=== PATIENT | male | born 1945 | race Caucasian/White ===

== ENCOUNTER 2018-03-23 11:42 | Inpatient (IN) ==
[2018-03-23 12:12] LABS: Bilirubin,Urine Negative (Negative); Blood,Urine Moderate (Negative); Clarity,Urine Clear (Clear); Color,Urine Yellow (Yellow); Glucose,Urine (UA) Normal (Normal); Ketones,Urine Negative (Negative); Leukocyte Esterase,Urine Negative (Negative); Nitrite,Urine Negative (Negative); Protein,Urine Negative (Neg-Trace); Specific Gravity,Urine 1.013 (1.010-1.025); Urobilinogen,Urine Normal (Normal)
[2018-03-23 12:14] LABS: Bacteria,Urine None Seen per hpf (None-Few); Hyaline Casts,Urine None Seen per lpf (None-Few); RBC,Urine 0-3 per hpf (0-3); Squamous Epithelial Cell,Urine Few per lpf (None-Few); WBC,Urine 0-3 per hpf (0-3)
[2018-03-23] MEDS ORDERED: 0.9 % Sodium Chloride 1,000 ML IVC ONE (12:20)
--- NOTE | 2018-03-23 12:33 | Electrocardiograph Report ---
[facility] Test Date: 2018-03-23 Pat Name: Glen Shi Department: 103 Room: Gender: M Patient Biller: MARINE : 1945 Requested By: Samanta Longo Order Number: [id number] Reading MD: Kunal Valdez Measurements Intervals [place] Rate: 91 P: 31 DC: 158 QRS: -7 QRSD: 80 T: 29 QT: 355 QTc: 403 Interpretive Statements SINUS RHYTHM MINIMAL VOLTAGE CRITERIA FOR LVH, CONSIDER NORMAL VARIANT [MEETS CRITERIA IN ONE OF: R(aVL), S(V1), R(V5), R(V5/V6)+S(V1)] WARNING: DATA QUALITY MAY AFFECT INTERPRETATION Electronically Signed On 03-23-2018 12:31:36 EDT by Kunal Valdez
[2018-03-23 12:52] LABS: Basophils % 0.3 %; Eosinophils % 0.7 %; Hematocrit 37.6 % (37.5-50.1); Hemoglobin 12.9 g/dL (12.9-16.9); Immature Granulocytes % 0.2 % (0-4); Lymphocytes # 1.3 K/mcL (0.6-4.6); Lymphocytes % 21.9 %; Mean Corpuscular HGB Conc 34.3 g/dL (31.6-35.5); Mean Corpuscular Hemoglobin 29.1 pg (28.0-33.3); Mean Corpuscular Volume 84.9 fL (83.0-100.0); Monocytes # 0.5 K/mcL (0.0-1.3); Monocytes % 8.7 %; Neutrophils # 4.1 K/mcL (1.6-8.9); Platelet Count 170 K/mcL (140-400); Red Blood Count 4.43 M/mcL (4.19-5.50); Red Cell Distribution Width 12.2 % (11.5-14.5); Segmented Neutrophils % 68.2 %
--- NOTE | 2018-03-23 13:03 | Emergency Department Note ---
Disposition Clinical Impression: Chest pain Qualifiers: Chest pain type: unspecified Qualified Code(s): R07.9 - Chest pain, unspecified Disposition: Still a Patient Referrals: Paul Owens MD [Primary Care Provider] - Forms: ED Satisfaction Letter General Adult HPI - General Chief complaint: ED Chest Pain Stated complaint: irreg HR, CP Time Seen by Provider: 03/23/18 11:45 - History of Present Illness Pain Scale: 0 - Related Data Home Medications Medication Instructions Recorded Confirmed Aspirin 81 mg PO DAILY 11/14/17 11/14/17 Pravastatin Sodium [Pravachol] 20 mg PO DAILY 11/14/17 11/14/17 Tamsulosin [Flomax] 0.8 mg PO DAILY 11/14/17 11/14/17 Allergies Allergy/AdvReac Type Severity Reaction Status Date / Time No Known Allergies Allergy Verified 11/14/17 07:29 Past Medical History - Past Medical History Medical history: Reports: arthritis, GERD Surgical history: Reports: angioplasty/stent, orthopedic, other, vasectomy, other Psychiatric history: Reports: no psych history - Social History Smoking Status: Never smoker Smokeless Tobacco Status: No Alcohol use: Reports: rarely Drug use: Reports: none Physical Exam - General General appearance: alert, in no apparent distress Course Vital Signs Temperature 98.0 F 03/23/18 11:47 Pulse Rate 102 03/23/18 11:47 Respiratory Rate 15 03/23/18 11:47 Blood Pressure 134/94 03/23/18 11:47 O2 Sat by Pulse Oximetry 97 03/23/18 11:47 Temperature 98.0 F 03/23/18 11:47 Pulse Rate 102 03/23/18 11:47 Respiratory Rate 15 03/23/18 11:47 Blood Pressure 134/94 03/23/18 11:47 O2 Sat by Pulse Oximetry 97 03/23/18 11:47 Oxygen Delivery Oxygen Delivery Room Air Medical Decision Making - Lab Data Result diagrams: 03/23/18 12:37 Lab Results 03/23/18 03/23/18 Range/Units 11:55 12:37 WBC 6.0 (4.3-11.1) K/mcL RBC 4.43 (4.19-5.50) M/mcL Hgb 12.9 (12.9-16.9) g/dL Hct 37.6 (37.5-50.1) % MCV 84.9 (83.0-100.0) fL MCH 29.1 (28.0-33.3) pg MCHC 34.3 (31.6-35.5) g/dL RDW 12.2 (11.5-14.5) % Plt Count 170 (140-400) K/mcL MPV 10.0 (9.4-12.4) fL Immature Gran % 0.2 (0-4) % Seg Neutrophils % 68.2 % Lymphocytes % 21.9 % Monocytes % 8.7 % Eosinophils % 0.7 % Basophils % 0.3 % Neutrophils # 4.1 (1.6-8.9) K/mcL Lymphocytes # 1.3 (0.6-4.6) K/mcL Monocytes # 0.5 (0.0-1.3) K/mcL Eosinophils # 0.0 (0.0-0.6) K/mcL Basophils # 0.0 (0.0-0.2) K/mcL Urine Color Yellow (Yellow) Urine Clarity Clear (Clear) Urine pH 7.0 (5.0-8.0) pH Units Ur Specific [place] 1.013 (1.010-1.025) Urine Protein Negative (Neg-Trace) mg/dL Urine Glucose (UA) Normal (Normal) mg/dL Urine Ketones Negative (Negative) mg/dL Urine Blood Moderate H (Negative) Urine Nitrite Negative (Negative) Urine Bilirubin Negative (Negative) Urine Urobilinogen Normal (Normal) mg/dL Ur Leukocyte Esterase Negative (Negative) Urine Microscopic RBC 0-3 (0-3) per hpf Urine Microscopic WBC 0-3 (0-3) per hpf Ur Squamous Epith Cells Few (None-Few) per lpf Urine Bacteria None Seen (None-Few) per hpf Hyaline Casts None Seen (None-Few) per lpf Ur Culture Indicated? NO (NO) Attestation Statement - Attestation Attestation: I examined this patient and my medical decision-making was reviewed with the Resident Physician. I agree with the documented findings, disposition and treatment plan as described except to the extent set forth below. 72 year old male presents to the ED with complaints of irregluar heart rate and chest pain. PAtinet states that this has happened to him a few years ago and was evaluted by cardiology and was given some vagal maneuvers to help decrease his heart rate. Agustina states that he has been experneicng similar palpitations while gardening recently. Agustina currently is NSR with rate of 91 , without any evidene of afib. WE will do cardiopulmonary workup and like discharge home is negative workup with followup to cardiology
[2018-03-23 13:16] LABS: Troponin I < 0.03 ng/mL (< 0.04)
[2018-03-23 13:17] LABS: BUN/Creatinine Ratio 22 (6-26); Blood Urea Nitrogen 28 mg/dL (8-23); Calcium 9.5 mg/dL (8.6-10.3); Carbon Dioxide 24 mEq/L (23-29); Chloride 110 mEq/L (98-107); Glucose 105 mg/dL (70-105); Osmolality,Calculated 300 (280-300); Potassium 3.8 mEq/L (3.5-5.1); Sodium 142 mEq/L (136-145); eGFR For African Americans > 60 (> 60); eGFR For Non-African Americans 57 (> 60)
--- NOTE | 2018-03-23 14:37 | Emergency Department Note ---
Disposition Clinical Impression: Chest pain Qualifiers: Chest pain type: unspecified Qualified Code(s): R07.9 - Chest pain, unspecified Disposition: Admitted As Inpatient Condition: Fair Referrals: Paul Owens MD [Partnered Physician] - Forms: ED Satisfaction Letter Time of Disposition: 14:52 Chest Pain HPI - General Chief Complaint: ED Chest Pain Stated Complaint: irreg HR, CP Time Seen by Provider: 03/23/18 11:45 Source: patient Mode of arrival: ambulatory Limitations: no limitations Vital Signs Reviewed: Yes Nursing Notes Reviewed: Yes - History of Present Illness HPI Narrative: Patient is a 72-year-old male who presents to [facility] ED with a chief complaint of chest pain. States his symptoms started around 11 AM when he was working out in the yard. States he started getting some palpitations and then had a stressful phone call. States his chest pain that started in the substernal region. States it radiated up into his neck. States he also felt very short of breath at that time. States the symptoms have now resolved. He received aspirin in the squad on route. Denies any nausea, vomiting, fever or chills. No abdominal pain, problems with urination or bowel movements. States he has had of prior heart catheterization done approximately 3 years ago at our facility. States they noted some blockages but nothing that needed stenting at that time. States she last followed up with cardiology approximately 2 years ago. Past medical history otherwise significant for hyperlipidemia on pravastatin. Pt complaint: chest pain Onset (ago): hour(s) Duration: now resolved Onset: during exertion Pain Location: substernal Severity: moderate Severity scale (1-10): 0 Quality: aching Pain Radiation: neck Improves with: nothing Worsens with: other (stress) Associated symptoms: Reports: dyspnea. Denies: nausea, vomiting, diaphoresis, fever, cough Treatments prior to arrival chest pain: aspirin - Related Data Home Medications Medication Instructions Recorded Confirmed Aspirin 81 mg PO DAILY 11/14/17 11/14/17 Pravastatin Sodium [Pravachol] 20 mg PO DAILY 11/14/17 11/14/17 Tamsulosin [Flomax] 0.8 mg PO DAILY 11/14/17 11/14/17 Cholecalciferol (D-3) [Vitamin D] 1,000 unit PO DAILY 03/23/18 03/23/18 Folic Acid [FA-8] 0.8 mg PO DAILY 03/23/18 03/23/18 Glucosamine Sulfate Dipot Chlr 1,000 mg PO DAILY 03/23/18 03/23/18 [Glucosamine] Saw [place] 80 mg PO DAILY 03/23/18 03/23/18 Ubidecarenone [Coq10] 50 mg PO DAILY 03/23/18 03/23/18 Allergies Allergy/AdvReac Type Severity Reaction Status Date / Time No Known Allergies Allergy Verified 03/23/18 14:11 All systems ED: reviewed and negative except as stated. Chest Pain PMH - Past Medical History Medical history: Reports: arthritis, GERD Surgical history: Reports: angioplasty/stent, orthopedic, other, vasectomy, other Psychiatric history: Reports: no psych history - Social History Smoking Status: Never smoker Alcohol use: Reports: rarely Drug use: Reports: none Physical Exam - General Limitations: no limitations General appearance: alert, in no apparent distress - Head Head exam: atraumatic, normocephalic, normal inspection - Eye Eye exam: Present: normal appearance, EOMI - ENT ENT exam: normal exam, normal oropharynx, mucous membranes moist - Neck Neck exam: Present: normal inspection, full ROM, trachea midline - Chest Chest inspection: Present: normal inspection, symmetric chest wall rise - Respiratory Respiratory exam: Present: normal lung sounds bilaterally - Cardiovascular Cardiovascular exam: Present: regular rate, normal rhythm, normal heart sounds - Abdominal Exam Abdominal exam: Present: soft, Non-Tender. Absent: tenderness, distention, guarding, rebound, rigidity - Extremities Exam Extremities exam: Present: normal inspection, full ROM. Absent: tenderness, pedal edema - Back Exam Back exam: Present: normal inspection, full ROM. Absent: tenderness - Neurological Exam Neurological exam: Present: alert, oriented X3 - Psychiatric Psychiatric exam: Present: normal affect, normal mood - Skin Skin exam: Present: warm, dry, intact, normal color Course Course Narrative: Patient seen and examined. Chest pain that started around 11 AM. Now asymptomatic. Already received a full dose of aspirin. Cardiopulmonary workup initiated. Due to patient's age and history of atherosclerosis, he is at moderate risk of having ACS. Will likely recommend admission. - Reevaluation(s) Reevaluation #1: Labwork, imaging unremarkable. We will admit for chest pain, rule out ACS. I discussed with the hospitalist who has accepted patient for admission. Time: 14:52 Vital Signs Temperature 98.0 F 03/23/18 11:47 Pulse Rate 102 03/23/18 11:47 Respiratory Rate 15 03/23/18 11:47 Blood Pressure 134/94 03/23/18 11:47 O2 Sat by Pulse Oximetry 97 03/23/18 11:47 Temperature 98.0 F 03/23/18 11:47 Pulse Rate 102 03/23/18 11:47 Respiratory Rate 16 03/23/18 13:21 Blood Pressure 103/74 03/23/18 13:21 O2 Sat by Pulse Oximetry 94 03/23/18 13:21 Oxygen Delivery Oxygen Delivery Room Air Chest Pain - Medical Records Medical records reviewed: Yes I reviewed the patient's medical records. - Lab Data Lab results reviewed: Yes I reviewed the patient's lab results. Result diagrams: 03/23/18 12:37 03/23/18 12:37 Lab Results 03/23/18 03/23/18 03/23/18 Range/Units 11:55 12:37 12:37 WBC 6.0 (4.3-11.1) K/mcL RBC 4.43 (4.19-5.50) M/mcL Hgb 12.9 (12.9-16.9) g/dL Hct 37.6 (37.5-50.1) % MCV 84.9 (83.0-100.0) fL MCH 29.1 (28.0-33.3) pg MCHC 34.3 (31.6-35.5) g/dL RDW 12.2 (11.5-14.5) % Plt Count 170 (140-400) K/mcL MPV 10.0 (9.4-12.4) fL Immature Gran % 0.2 (0-4) % Seg Neutrophils % 68.2 % Lymphocytes % 21.9 % Monocytes % 8.7 % Eosinophils % 0.7 % Basophils % 0.3 % Neutrophils # 4.1 (1.6-8.9) K/mcL Lymphocytes # 1.3 (0.6-4.6) K/mcL Monocytes # 0.5 (0.0-1.3) K/mcL Eosinophils # 0.0 (0.0-0.6) K/mcL Basophils # 0.0 (0.0-0.2) K/mcL D-Dimer (0-500) ng/mLFEU Sodium 142 (136-145) mEq/L Potassium 3.8 (3.5-5.1) mEq/L Chloride 110 H (98-107) mEq/L Carbon Dioxide 24 (23-29) mEq/L BUN 28 H (8-23) mg/dL Creatinine 1.26 (0.70-1.30) mg/dL Est GFR ( Amer) > 60 (> 60) Est GFR (Non-Af Amer) 57 L (> 60) BUN/Creatinine Ratio 22 (6-26) Glucose 105 (70-105) mg/dL Calculated Osmolality 300 (280-300) Calcium 9.5 (8.6-10.3) mg/dL Troponin I < 0.03 (< 0.04) ng/mL Urine Color Yellow (Yellow) Urine Clarity Clear (Clear) Urine pH 7.0 (5.0-8.0) pH Units Ur Specific [place] 1.013 (1.010-1.025) Urine Protein Negative (Neg-Trace) mg/dL Urine Glucose (UA) Normal (Normal) mg/dL Urine Ketones Negative (Negative) mg/dL Urine Blood Moderate H (Negative) Urine Nitrite Negative (Negative) Urine Bilirubin Negative (Negative) Urine Urobilinogen Normal (Normal) mg/dL Ur Leukocyte Esterase Negative (Negative) Urine Microscopic RBC 0-3 (0-3) per hpf Urine Microscopic WBC 0-3 (0-3) per hpf Ur Squamous Epith Cells Few (None-Few) per lpf Urine Bacteria None Seen (None-Few) per hpf Hyaline Casts None Seen (None-Few) per lpf Ur Culture Indicated? NO (NO) 03/23/18 Range/Units 12:37 WBC (4.3-11.1) K/mcL RBC (4.19-5.50) M/mcL Hgb (12.9-16.9) g/dL Hct (37.5-50.1) % MCV (83.0-100.0) fL MCH (28.0-33.3) pg MCHC (31.6-35.5) g/dL RDW (11.5-14.5) % Plt Count (140-400) K/mcL MPV (9.4-12.4) fL Immature Gran % (0-4) % Seg Neutrophils % % Lymphocytes % % Monocytes % % Eosinophils % % Basophils % % Neutrophils # (1.6-8.9) K/mcL Lymphocytes # (0.6-4.6) K/mcL Monocytes # (0.0-1.3) K/mcL Eosinophils # (0.0-0.6) K/mcL Basophils # (0.0-0.2) K/mcL D-Dimer 383 (0-500) ng/mLFEU Sodium (136-145) mEq/L Potassium (3.5-5.1) mEq/L Chloride (98-107) mEq/L Carbon Dioxide (23-29) mEq/L BUN (8-23) mg/dL Creatinine (0.70-1.30) mg/dL Est GFR ( Amer) (> 60) Est GFR (Non-Af Amer) (> 60) BUN/Creatinine Ratio (6-26) Glucose (70-105) mg/dL Calculated Osmolality (280-300) Calcium (8.6-10.3) mg/dL Troponin I (< 0.04) ng/mL Urine Color (Yellow) Urine Clarity (Clear) Urine pH (5.0-8.0) pH Units Ur Specific [place] (1.010-1.025) Urine Protein (Neg-Trace) mg/dL Urine Glucose (UA) (Normal) mg/dL Urine Ketones (Negative) mg/dL Urine Blood (Negative) Urine Nitrite (Negative) Urine Bilirubin (Negative) Urine Urobilinogen (Normal) mg/dL Ur Leukocyte Esterase (Negative) Urine Microscopic RBC (0-3) per hpf Urine Microscopic WBC (0-3) per hpf Ur Squamous Epith Cells (None-Few) per lpf Urine Bacteria (None-Few) per hpf Hyaline Casts (None-Few) per lpf Ur Culture Indicated? (NO) - Radiology Data Radiology results reviewed: Yes I reviewed the patient's radiology results. Chest X-Ray 03/23/18 12:07 IMPRESSION: No acute process. D/ / Kang Kearney MD / Kang Kearney MD Interpreting Provider: Kang Kearney MD - EKG Data EKG attestation: Yes I reviewed and interpreted this EKG. EKG results narrative: EKG done at 1151 shows normal sinus rhythm with a rate of [address] elevation or depression. Normal axis. Unchanged from prior EKG done 2014. Heart Score - Score History: Moderately Suspicious EKG: Normal Age: Greater than 65 Risk Factors: Equal/Greater than 3 risk factor or history of atherosclerotic disease Troponin: Less than normal limit HEART Score Total: 5
[2018-03-23] MEDS ORDERED: Naloxone 0.4 MG/ML INJ IVP PRN (17:53)
[2018-03-23] MEDS ORDERED: Acetaminophen 325 MG TABLET PO PRN (17:53)
[2018-03-23] MEDS ORDERED: traMADol 50 MG TABLET PO PRN (17:53)
[2018-03-23] MEDS ORDERED: *HR* Heparin 5,000 UNIT/ML VIAL SQ SCH (18:00)
--- NOTE | 2018-03-23 18:16 | Internal Med History&Physical ---
Date of Encounter: 03/23/18 Time of Encounter: 18:08 Internal Medicine - H&P: HPI Admitted From: Home Plans for Post Hospital Care: Home History of present illness: Mr. Shi is a 72 year old male who presents to [facility] ED with a chief complaint of chest pain. States his symptoms started around 11 AM when he was working out in the yard. States he started getting some palpitations and then had a stressful phone call. States his chest pain that started in the substernal region. States it radiated up into his neck. States he also felt very short of breath at that time. States the symptoms have now resolved. He received aspirin in the squad on route. Denies any nausea, vomiting, fever or chills. No abdominal pain, problems with urination or bowel movements. States he has had of prior heart catheterization done approximately 3 years ago at our facility. States they noted some blockages but nothing that needed stenting at that time. States she last followed up with cardiology approximately 2 years ago. Past medical history otherwise significant for hyperlipidemia on pravastatin. Past Med Surg Social Fam HX - Past Medical History Medical history: arthritis, GERD, other Psychiatric history: no psych history - Past Surgical History Surgical History: angioplasty/stent, orthopedic, other, vasectomy, other - Social History Smoking Status: Never smoker Smokeless Tobacco Status: No Alcohol use: rarely Drug use: none - Family History Father Living Status: Age at : 74 Cause of : heart disease Hx Family Cardiac Disorders: Yes Internal Medicine - H&P: Meds Aspirin 81 mg PO DAILY 11/14/17 [History] Pravastatin Sodium [Pravachol] 20 mg PO DAILY 11/14/17 [History] Tamsulosin [Flomax] 0.8 mg PO DAILY 11/14/17 [History] Cholecalciferol (D-3) [Vitamin D] 1,000 unit PO DAILY 03/23/18 [History] Folic Acid [FA-8] 0.8 mg PO DAILY 03/23/18 [History] Glucosamine Sulfate Dipot Chlr [Glucosamine] 1,000 mg PO DAILY 03/23/18 [History ] Saw [place] 80 mg PO DAILY 03/23/18 [History] Ubidecarenone [Coq10] 50 mg PO DAILY 03/23/18 [History] 3 Allergy/AdvReac Type Severity Reaction Status Date / Time No Known Allergies Allergy Verified 03/23/18 14:11 All Systems PM: A 10-system review of systems was performed and is negative for pertinent findings except as documented above in the HPI. Review of systems: REVIEW OF SYSTEMS: CONSTITUTIONAL: No weight loss, fever, chills, weakness or fatigue. HEENT: Eyes: No visual loss, blurred vision, double vision or yellow sclerae. Ears, Nose, Throat: No hearing loss, sneezing, congestion, runny nose or sore throat. SKIN: No rash or itching. CARDIOVASCULAR: see HPI. RESPIRATORY: No shortness of breath, cough or sputum. GASTROINTESTINAL: No anorexia, nausea, vomiting or diarrhea. No abdominal pain or blood. GENITOURINARY: No dysuria, urgency, or frequency. NEUROLOGICAL: No headache, dizziness, syncope, paralysis, ataxia, numbness or tingling in the extremities. No change in bowel or bladder control. MUSCULOSKELETAL: No muscle, back pain, joint pain or stiffness. HEMATOLOGIC: No anemia, bleeding or bruising. LYMPHATICS: No enlarged nodes. No history of splenectomy. PSYCHIATRIC: No history of depression or anxiety. ENDOCRINOLOGIC: No reports of sweating, cold or heat intolerance. No polyuria or polydipsia. - Constitutional Vitals: Temp Pulse Resp BP Pulse Ox 97.7 F 81 14 126/78 97 03/23/18 14:50 03/23/18 14:50 03/23/18 14:50 03/23/18 14:50 03/23/18 14:50 General appearance: Present: A&O X 3 Exam: PHYSICAL EXAMINATION: GENERAL APPEARANCE: The patient is alert, oriented and in no acute distress. HEENT: Head is normocephalic. The sinuses are nontender. Pupils are equal and reactive. The nares are patent. Oropharynx clear without lesions. NECK: Supple without lymphadenopathy. HEART: Regular rate and rhythm. LUNGS: No crackles or wheezes are heard. ABDOMEN: Soft, nontender, nondistended with good bowel sounds heard. Inguinal area is normal. EXTREMITIES: Without cyanosis, clubbing or edema. NEUROLOGICAL: Gross nonfocal. SKIN: Warm and dry without any rash. Internal Med - H&P Results - Labs CBC & Chem 7: 03/23/18 12:37 03/23/18 12:37 - Assessment and plan (1) Chest pain Current Visit: Yes Status: Acute Assessment and plan: 9 year old male with past medical history of hyperlipidemia presented with acute onset of chest pain. He had a cardiac workup 2-3 years ago which patient reported to be normal. - Patient take aspirin and home, he received aspirin at ED, overall low risk for 's ACS. - Continue cycle troponin, telemetry monitoring, EKG as needed. - Echocardiogram and stress test in the morning. Qualifiers: Chest pain type: unspecified Qualified Code(s): R07.9 - Chest pain, unspecified (2) Hyperlipidemia Current Visit: No Status: Chronic Assessment and plan: Repeated lipid panel in the morning. Continue home medication. Qualifiers: Hyperlipidemia type: pure hypercholesterolemia Qualified Code(s): E78.00 - Pure hypercholesterolemia, unspecified; E78.0 - Pure hypercholesterolemia - Time Spent With Patient Total time spent is greater than 50% in coordination of care (as documented) at patient's floor/unit and/or counseling patient: Greater than 35 minutes
[2018-03-23] MEDS ORDERED: *HR* Heparin 5,000 UNIT/ML VIAL IVP PRN ×4 (19:18→19:52)
[2018-03-23] MEDS ORDERED: *HR* Heparin 5,000 UNIT/ML VIAL IVP ONE (19:18)
[2018-03-23] MEDS ORDERED: Heparin 25,000 UNIT/500 ML D5W 25,000 UNIT/500 ML BAG IVC SCH ×2 (19:30→20:00)
[2018-03-23 19:54] LABS: Hematocrit 34.2 % (37.5-50.1); Hemoglobin 12.2 g/dL (12.9-16.9); Mean Corpuscular HGB Conc 35.7 g/dL (31.6-35.5); Mean Corpuscular Hemoglobin 30.7 pg (28.0-33.3); Mean Corpuscular Volume 86.1 fL (83.0-100.0); Mean Platelet Volume 10.1 fL (9.4-12.4); Platelet Count 155 K/mcL (140-400); Red Blood Count 3.97 M/mcL (4.19-5.50); Red Cell Distribution Width 12.4 % (11.5-14.5)
[2018-03-23 20:06] LABS: INR 1.1; Prothrombin Time 11.8 Seconds (9.4-12.1)
[2018-03-23 20:09] LABS: Activated Partial Thrombo Time 29.2 Seconds (26.0-36.0)
[2018-03-24 03:26] LABS: Basophils % 0.7 %; Eosinophils # 0.1 K/mcL (0.0-0.6); Eosinophils % 2.1 %; Hematocrit 34.7 % (37.5-50.1); Hemoglobin 12.2 g/dL (12.9-16.9); Immature Granulocytes % 0.2 % (0-4); Lymphocytes # 2.1 K/mcL (0.6-4.6); Lymphocytes % 39.6 %; Mean Corpuscular HGB Conc 35.2 g/dL (31.6-35.5); Mean Corpuscular Hemoglobin 30.4 pg (28.0-33.3); Mean Corpuscular Volume 86.5 fL (83.0-100.0); Mean Platelet Volume 10.4 fL (9.4-12.4); Monocytes # 0.5 K/mcL (0.0-1.3); Neutrophils # 2.6 K/mcL (1.6-8.9); Platelet Count 164 K/mcL (140-400); Red Blood Count 4.01 M/mcL (4.19-5.50); Red Cell Distribution Width 12.4 % (11.5-14.5); Segmented Neutrophils % 48.4 %
[2018-03-24 03:43] LABS: BUN/Creatinine Ratio 21 (6-26); Blood Urea Nitrogen 22 mg/dL (8-23); Calcium 8.9 mg/dL (8.6-10.3); Carbon Dioxide 22 mEq/L (23-29); Chloride 112 mEq/L (98-107); Chol/HDL Ratio 3.1 (0-4.9); Cholesterol 116 mg/dL (< 200); Glucose 111 mg/dL (70-105); HDL Cholesterol 38 mg/dL (40-59); LDL Cholesterol,Calculated 65 mg/dL (0-99); Osmolality,Calculated 298 (280-300); Potassium 4.1 mEq/L (3.5-5.1); Sodium 142 mEq/L (136-145); Triglycerides 65 mg/dL (< 150); eGFR For African Americans > 60 (> 60); eGFR For Non-African Americans > 60 (> 60)
[2018-03-24 03:46] LABS: Activated Partial Thrombo Time 171.2 Seconds (26.0-36.0)
[2018-03-24 03:55] LABS: Heparin anti-factor XA UFH 0.84 IU/mL (0.30-0.70)
--- NOTE | 2018-03-24 08:02 | Internal Med Progress Note ---
Date of Encounter: 03/24/18 Time of Encounter: 07:59 - Assessment and plan (1) Chest pain Current Visit: Yes Status: Acute Assessment and plan: 72 year old male with past medical history of hyperlipidemia presented with acute onset of chest pain. He had a cardiac workup 2-3 years ago which patient reported to be normal. - Patient take aspirin and home, he received aspirin at ED, overall low risk for ACS. - 2nd set of troponin slightly elevated, patient was started on heparin drip, however the third set of troponin was at flat level, heparin drip was DC'd. Continue telemetry monitoring, EKG as needed. - Echocardiogram and stress test today. - Plan to discharge the patient on Tuesday if both the stress test and echocardiogram were normal. Qualifiers: Chest pain type: unspecified Qualified Code(s): R07.9 - Chest pain, unspecified (2) Hyperlipidemia Current Visit: No Status: Chronic Assessment and plan: Repeat lipid panel this morning showed LDL within treatment target. Continue home medication. Qualifiers: Hyperlipidemia type: pure hypercholesterolemia Qualified Code(s): E78.00 - Pure hypercholesterolemia, unspecified; E78.0 - Pure hypercholesterolemia - Time Spent With Patient Total time spent is greater than 50% in coordination of care (as documented) at patient's floor/unit and/or counseling patient: Greater than 35 minutes - Subjective Interval history: Patient went for echo, I will see the patient later. - Constitutional Vitals: Temp Pulse Resp BP Pulse Ox 97.7 F 66 14 128/82 96 03/24/18 03:19 03/24/18 03:19 03/24/18 03:19 03/24/18 03:19 03/24/18 03:19 General appearance: Present: A&O X 3 Exam: PHYSICAL EXAMINATION: GENERAL APPEARANCE: The patient is alert, oriented and in no acute distress. HEENT: Head is normocephalic. The sinuses are nontender. Pupils are equal and reactive. The nares are patent. Oropharynx clear without lesions. NECK: Supple without lymphadenopathy. HEART: Regular rate and rhythm. LUNGS: No crackles or wheezes are heard. ABDOMEN: Soft, nontender, nondistended with good bowel sounds heard. Inguinal area is normal. EXTREMITIES: Without cyanosis, clubbing or edema. NEUROLOGICAL: Gross nonfocal. SKIN: Warm and dry without any rash. Internal Medicine: Result - Labs CBC & Chem 7: 03/24/18 03:01 03/24/18 03:01 Labs: Short CBC 03/23/18 03/24/18 Range/Units 19:38 03:01 WBC 4.9 5.4 (4.3-11.1) K/mcL Hgb 12.2 L 12.2 L (12.9-16.9) g/dL Hct 34.2 L 34.7 L (37.5-50.1) % Plt Count 155 164 (140-400) K/mcL Neutrophils # 2.6 (1.6-8.9) K/mcL BMP 03/24/18 03:01 Sodium 142 Potassium 4.1 Chloride 112 H Carbon Dioxide 22 L BUN 22 Creatinine 1.07 Glucose 111 H Calcium 8.9 Cardiac Enzymes 03/23/18 03/24/18 Range/Units 18:00 00:52 Troponin I 0.07 H* 0.06 H* (< 0.04) ng/mL - ABG Interpretation ABG results: PT/INR, D-dimer PT 11.8 Seconds (9.4-12.1) 03/23/18 19:38 D-Dimer 383 ng/mLFEU (0-500) 03/23/18 12:37 Consult Discharge Plan - Plan Referrals: Paul Owens MD [Primary Care Provider] -
[2018-03-24] MEDS: Aspirin 81 MG TAB.CHEW PO SCH (09:25)
[2018-03-24] MEDS: Cholecalciferol (D-3) 1,000 UNIT TABLET PO SCH (09:25)
[2018-03-24] MEDS: (Ubidecarenone [Coq10] 50 MG) PO SCH (11:07)
[2018-03-24] MEDS: (Folic Acid [Fa-8] 0.8 MG) PO SCH (11:07)
[2018-03-24] MEDS: (Glucosamine Sulfate Dipot Chlr [Glucosamine] 1,000 M PO SCH (11:07)
[2018-03-24] MEDS ORDERED: Heparin 1,000 UNITS/500 mL 500 ML ONE ×2 (12:05→13:47)
[2018-03-24] MEDS ORDERED: ISOVUE-370 200 ML INFUS..BTL IV ONE ×2 (12:05→13:47)
[2018-03-24] MEDS ORDERED: 0.9 % Sodium Chloride 1,000 ML ONE ×3 (12:05→13:47)
[2018-03-24] MEDS ORDERED: Nitroglycerin 1,000 MCG/10 ML VIAL IV ONE ×2 (12:05→13:48)
[2018-03-24] MEDS ORDERED: *HR* Heparin 10,000 UNIT/10 ML VIAL ONE ×2 (12:05→13:47)
[2018-03-24] MEDS ORDERED: *HR* Midazolam HCl 2 MG/2 ML VIAL ONE ×2 (12:39→13:04)
--- NOTE | 2018-03-24 12:53 | Cardiology Consult Note ---
Date of Encounter: 03/24/18 Time of Encounter: 12:49 Assessment and Plan (1) NSTEMI (non-ST elevated myocardial infarction) Current Visit: Yes Status: Acute Moderate disease of the left anterior descending artery in 2013 with recent onset of exertional dyspnea and chest pain along with a troponin of 0.06. Risks benefits and alternatives of a left heart cath were discussed with the patient and he agrees to proceed Discussion w patient/family: The assessment and plan as outlined above was discussed with the patient and/or family members who expressed understanding and agreement. All questions were answered. Thank you for involving us in the care of your patient. Please call with any questions. History of Present Illness Consult date: 03/24/18 Consult reason: NSTEMI Chief complaint: Chest pain History of present illness: Mr. Shi is a 72 year old male with known nonobstructive coronary artery disease last left heart catheter [address] Santos presents with increasing shortness of breath over the last month associated with recent onset of retrosternal chest pain associated with shortness of breath. EKG shows nonspecific ST changes. I personally reviewed his left heart catheter from 2013 which reveals nonobstructive disease involving the mid LAD. In the setting of slight elevation of his troponins with a peak of 0.06 and exertional dyspnea possibly an angina equivalent I do feel a left heart catheter is reasonable. Past Med Surg Social Fam HX - Past Medical History Medical history: arthritis, GERD, other Psychiatric history: no psych history - Past Surgical History Surgical History: angioplasty/stent, orthopedic, other, vasectomy, other - Social History Smoking Status: Never smoker Smokeless Tobacco Status: No Alcohol use: rarely Drug use: none - Family History Father Living Status: Age at : 74 Cause of : heart disease Hx Family Cardiac Disorders: Yes Medications and Allergies Aspirin 81 mg PO DAILY 11/14/17 [History] Pravastatin Sodium [Pravachol] 20 mg PO DAILY 11/14/17 [History] Tamsulosin [Flomax] 0.8 mg PO DAILY 11/14/17 [History] Cholecalciferol (D-3) [Vitamin D] 1,000 unit PO DAILY 03/23/18 [History] Folic Acid [FA-8] 0.8 mg PO DAILY 03/23/18 [History] Glucosamine Sulfate Dipot Chlr [Glucosamine] 1,000 mg PO DAILY 03/23/18 [History ] Saw [place] 80 mg PO DAILY 03/23/18 [History] Ubidecarenone [Coq10] 50 mg PO DAILY 03/23/18 [History] 3 Allergy/AdvReac Type Severity Reaction Status Date / Time No Known Allergies Allergy Verified 03/23/18 14:11 All Systems Review: The remainder of the systems were reviewed and are negative Physical Examination Vital Signs, Last 4 Hours Temp Pulse Resp BP Pulse Ox 03/24/18 11:18 98.0 F 85 18 131/82 97 General: Conversant, No Apparent Distress HEENT: Atraumatic, Normocephaly, Mucus Membranes Moist Neck: No JVD, Normal carotid pulses Cardiac: Reg Rate and Rhythm, Normal S1 and S2, No Murmur Lungs: Normal Breath Sounds, No Wheeze, Rales, Rhonchi Neuro: Alert and responsive, No focal deficits noted Abdomen: Soft, Non-Tender Skin: No rashes noted on visualized skin Musculoskeletal: No Chest Wall Tenderness Extremities: No Clubbing, No Cyanosis, No Edema, Normal Pulses Results 03/24/18 03:01 03/24/18 03:01 Lab Results 03/23/18 03/23/18 03/23/18 18:00 19:38 19:38 WBC 4.9 Hgb 12.2 L Hct 34.2 L Plt Count 155 INR 1.1 APTT 29.2 Sodium Potassium Chloride Carbon Dioxide BUN Creatinine Glucose Calcium Troponin I 0.07 H* 03/24/18 03/24/18 03/24/18 00:52 03:01 03:01 WBC 5.4 Hgb 12.2 L Hct 34.7 L Plt Count 164 INR APTT Sodium 142 Potassium 4.1 Chloride 112 H Carbon Dioxide 22 L BUN 22 Creatinine 1.07 Glucose 111 H Calcium 8.9 Troponin I 0.06 H* 03/24/18 03/24/18 03:01 09:57 WBC Hgb Hct Plt Count INR APTT 171.2 H* D 38.8 H D Sodium Potassium Chloride Carbon Dioxide BUN Creatinine Glucose Calcium Troponin I Consult Discharge Plan - Plan Referrals: Paul Owens MD [Primary Care Provider] -
[2018-03-24] MEDS ORDERED: *HR* Ticagrelor 90 MG TABLET ONE (13:33)
[2018-03-24] MEDS ORDERED: Nitroglycerin Spray 4.9 GM BOTTLE ONE (13:39)
[2018-03-24] MEDS ORDERED: *HR* Morphine 2 MG/ML SYRINGE ONE (14:02)
--- NOTE | 2018-03-24 14:13 | Pre-Sedation Evaluation ---
Pre-sedation evaluation - Pre-sedation checklist Date of procedure: 03/24/18 Procedure: heart cath Recent Vitals: Last Vital Signs Temp 98.0 F 03/24/18 11:18 Pulse 85 03/24/18 11:18 Resp 18 03/24/18 11:18 BP 131/82 03/24/18 11:18 Pulse Ox 97 03/24/18 11:18 H&P (including ROS) documented in medical record: Yes Previous reaction to sedatives/anesthetics: No Dietary Status: NPO after Midnight Airway Assessment: Patient can open mouth completely, TMJ function normal Dentition: No loose teeth or bridges Possible difficult airway: No ASA Classification *see protocol: CLASS II-Mild systemic disease, CLASS III- Severe systemic disease Plan of Care: Pt appropriate candidate for procedure/moderate/conscious sedation , Risks/benefits of procedure/sedation discussed w/ patient/family, If not NPO; Risk of intake outweiged by necessity to perform procedure
[2018-03-24] MEDS ORDERED: 0.9 % Sodium Chloride 1,000 ML IVC SCH (14:15)
--- NOTE | 2018-03-24 14:35 | Invasive Diagnostic Lab Proc ---
Name: Glen Shi Date of Study: 03/24/2018 Date: 1945 Ht: 65.0in Medical Record#: [id number] Age: 72 Wt: 171.96lb Gender: Male BSA: 1.85 Order #: [id number] BMI: 28.65 Physicians Procedure Physician: RAFAEL APARICIO DO Referring MD: Referring MD: Staff Name Position Time In Mary Carmen Hernandez RT Scrub 01:58 PM Taya Fine RN Medical Representative 01:58 PM Juan Manuel Diggs RN Monitor 01:58 PM Indications Indication Non-Stemi Procedures Performed Procedure CORONARY ARTERY ANGIO S&I Pre-Procedure Checklist Informed consent is complete signed and on chart. H&P is on chart. ID band is on and ID verified with patient. Patient NPO for procedure The procedure was described for the patient and questions were answered. ECG is on chart. Plan of Care Patient will tolerate the procedure without complications. Adequate level of comfort will be maintained. Hemodynamics will remain stable Patient will recover from procedure without complications. Respiratory function will be maintained. Cardiac rhythm will remain stable. Patient temperature will be maintained. Patient and/or family have verbalized understanding of the procedure. Patient Education Intravenous Access Time IV Size Location DC'd Fluid/Drip Rate Units RN 01:55 PM 18g 1 11/10" Patent On Arrival Lt Antecubital Allergies No Known Allergies Vital Signs Time BP (mmHg) HR (bpm) O2 Sat. RR (bpm) LOC 01:54 PM 143 / 98 98 95 % 14 4 = Oriented but drowsy 01:59 PM 151 / 99 104 97 % 14 4 = Oriented but drowsy 02:04 PM 126 / 90 106 96 % 14 4 = Oriented but drowsy Procedural Medications Time Medication Dose Units Method Given By 01:58 PM Nitroglycerin 100 mcg Intracoronary Rafael Aparicio DO 02:01 PM Morphine 2 mg Intravenous Taya Fine RN ASA Classification: CLASS II- Mild systemic disease (i.e. well-controlled diabetes, hypertension, asthma, cigarette smoking) Jeremy Score Preprocedure Postprocedure Activity 2- Moves 4 extremities sustained head lift Activity 2- Moves 4 extremities sustained head lift Circulation 2- SBP +/= 20 points of pre-anesthetic level Circulation 2- SBP +/= 20 points of pre-anesthetic level Consciousness 2- Awake and alert oriented x 3 Consciousness 2- Awake and alert oriented x 3 O2 Saturation 2- Able to maintain O2 satruation of 92% on room air O2 Saturation 2- Able to maintain O2 satruation of 92% on room air Respiratory 2- Able to deep breathe and cough well Respiratory 2- Able to deep breathe and cough well Total Score 10 Total Score 10 Contrast Agent: Isovue Total Contrast: 20 ml Procedure Log Time Note Enter By 01:55 PM Pt arrived to laborer electroplating 2 at 13:55 cedwards 01:56 PM Physician arrived 13:56, Patient with ongoing chest pain cedwards 01:56 PM Fortunato and tony completed cedwards 01:56 PM Sign in performed according to hospital policy. cedwards 01:56 PM Procedure start 13:56 cedwards 01:56 PM Time: 13:56 Patient comfortable and pain free: No cedwards 01:56 PM Time: 13:56LOC: 4 = Oriented but drowsy cedwards 01:56 PM Time out performed according to hospital policy cedwards 01:56 PM Sheath exchanged for a 6 Fr 11 cm Cordis Siom[place] sheath [id number] cedwards 01:57 PM 6Fr FL 4 catheter inserted over the wire DNC cedwards 01:57 PM LCA angiography performed in multiple views. cedwards 01:58 PM Mary Carmen Hernandez RT Position: Scrub Time in: 13:58 cedwards 01:58 PM Taya Fine RN Position: Medical Representative Time in: 13:58 cedwards 01:58 PM Juan Manuel Diggs RN Position: Monitor Time in: 13:58 cedwards 01:59 PM Time: 13:58 Nitroglycerin 100 mcg Intracoronary Given by Rafael Aparicio DO cedwards 02:01 PM Time: 14:01 Morphine 2 mg Intravenous Given by Taya Fine RN cedwards 02:10 PM Chest Pain rated at a 4 out of 10 cedwards Hemodynamics Post Procedure Information Closure Device Time Device Success/Fail 03/24/2018 2:13:00 PM Manual Compression Pulses Updated by Juan Manuel Diggs RN on 03/24/2018 2:25:19 PM electronically signed on 03/24/2018 2:26:36 PM with status of Final
--- NOTE | 2018-03-24 14:45 | Invasive Diagnostic Lab Proc ---
Name: Glen Shi Date of Study: 03/24/2018 Date: 1945 Ht: 65.0in Medical Record#: [id number] Age: 72 Wt: 171.96lb Gender: Male BSA: 1.85 Order #: [id number] BMI: 28.65 Physicians Procedure Physician: Rafael Aparicio DO Referring MD: Referring MD: Staff Name Position Time In Taya Fine RN Hand Cigar Maker 12:36 PM Mary Carmen Hernandez RT Scrub 12:36 PM Juan Manuel Diggs RN Monitor 12:36 PM Indications Indication Non-Stemi Procedures Performed Procedure L HRT ARTERY/VENTRICLE ANGIO PRQ CARD SUGAR STENT W/ANGIO 1 VSL IV Doppler BLD Flow 1st Vessel Pre-Procedure Checklist Informed consent is complete signed and on chart. H&P is on chart. ID band is on and ID verified with patient. Patient NPO for procedure The procedure was described for the patient and questions were answered. ECG is on chart. Plan of Care Patient will tolerate the procedure without complications. Adequate level of comfort will be maintained. Hemodynamics will remain stable Patient will recover from procedure without complications. Respiratory function will be maintained. Cardiac rhythm will remain stable. Patient temperature will be maintained. Patient and/or family have verbalized understanding of the procedure. Patient Education Chief Complaint/Reason for Test: Cardiac Cath Developmental Category: Geriatric (65+ years) Developmentally Appropriate for Age: Yes Learning Barriers: None Education Needs: Procedure Education Method: Verbal Information Taught: Cardiac Cath Educational Evaluation: Able to repeat information Intravenous Access Time IV Size Location DC'd Fluid/Drip Rate Units RN 18g 1 /" Patent On Arrival Lt Antecubital 0.9NaCl 25 ml/hr Allergies No Known Allergies Vital Signs Time BP (mmHg) HR (bpm) O2 Sat. RR (bpm) LOC / % 5 = Fully awake and oriented or at pre-proc level 12:23 PM / % 5 = Fully awake and oriented or at pre-proc level 12:35 PM / % 5 = Fully awake and oriented or at pre-proc level 12:35 PM / % 4 = Oriented but drowsy 12:51 PM / % 4 = Oriented but drowsy 01:06 PM / % 4 = Oriented but drowsy 01:21 PM / % 5 = Fully awake and oriented or at pre-proc level 12:35 PM 143 / 90 82 % 12:40 PM 151 / 98 72 98 % 12:45 PM 125 / 77 81 97 % 12:50 PM 129 / 91 60 99 % 12:55 PM 126 / 74 51 99 % 01:00 PM 114 / 79 59 100 % 01:05 PM 125 / 93 73 99 % 01:11 PM 133 / 82 79 97 % 01:15 PM 129 / 81 66 96 % 01:20 PM 129 / 78 90 96 % 01:25 PM 118 / 88 77 98 % 01:30 PM 119 / 80 95 94 % 01:36 PM 141 / 89 % 01:38 PM 144 / 87 83 95 % 01:43 PM 141 / 93 87 94 % 01:48 PM 144 / 100 103 96 % Procedural Medications Time Medication Dose Units Method Given By 12:40 PM Oxygen 2 L/min nasal cannula Taya Fine RN 12:41 PM Versed 2 mg Intravenous Taya Fine RN 01:03 PM Lidocaine 2% 10 ml Subcutaneous Rafael Aparicio DO 01:05 PM Versed 1 mg Intravenous Taya Fine RN 01:15 PM Heparin 3000 units Intravenous Taya Fine RN 01:19 PM Adenosine 655 ml/hr Intravenous Taya STEPHENS 01:27 PM Nitroglycerin 100 mcg Intracoronary Rafael Aparicio DO 01:32 PM Brilinta 180 mg Orally Taya Fine RN 01:41 PM Nitroglycerin 0.4 mcg Sublingual Taya Fine RN ASA Classification: CLASS II- Mild systemic disease (i.e. well-controlled diabetes, hypertension, asthma, cigarette smoking) Jeremy Score Preprocedure Postprocedure Activity 2- Moves 4 extremities sustained head lift Activity 2- Moves 4 extremities sustained head lift Circulation 2- SBP +/= 20 points of pre-anesthetic level Circulation 2- SBP +/= 20 points of pre-anesthetic level Consciousness 2- Awake and alert oriented x 3 Consciousness 2- Awake and alert oriented x 3 O2 Saturation 2- Able to maintain O2 satruation of 92% on room air O2 Saturation 2- Able to maintain O2 satruation of 92% on room air Respiratory 2- Able to deep breathe and cough well Respiratory 2- Able to deep breathe and cough well Total Score 10 Total Score 10 Contrast Agent: Isovue Diagnostic Contrast: 110 ml Total Contrast: 110 ml Fluoro Dose: 489 mGy Activated Clotting Time Time Seconds to Clot 01:37 PM 196 Procedure Log Time Note Enter By 12:22 PM CathStat 12:23 PM Pt arrived to laboratory aide 2 at 12:23 scoates 12:23 PM Patient charges- Angio tray pack, Navilyst 3mm J, Pulse Oximetry and ACIST tubing and transducer scoates 12:23 PM Time: 12:23 Patient comfortable and pain free: Yes scoates 12:23 PM Time: 12:23LOC: 5 = Fully awake and oriented or at pre-proc level scoates 12:23 PM Case Delayed No scoates 12:35 PM Hair removed from procedure site in procedure lab using clippers. Bilateral groin prepped with Chloraprep by Mary Carmen Hernandez, then patient was draped. Skin intact. cedwards 12:35 PM Vitals capture started with the following parameters, Patient=Adult, Interval=5 min, Initial Pel[place]mal=568 mmHg, Deflation Rate=5 mmHg, Cuff placed on Right Arm 12:35 PM Physician arrived 12:35 cedwards 12:35 PM Meet and tony completed cedwards 12:35 PM Sign in performed according to hospital policy. cedwards 12:35 PM Procedure start 12:35 cedwards 12:35 PM Time: 12:35 Patient comfortable and pain free: Yes cedwards 12:35 PM Time: 12:35LOC: 5 = Fully awake and oriented or at pre-proc level cedwards 12:35 PM HR=82 bpm, BEJW=059/90 mmhg, Comment=NSR 12:36 PM Taya Fine RN Position: Hand Cigar Maker Time in: 12:36 cedwards 12:36 PM Mary Carmen Hernandez RT Position: Scrub Time in: 12:36 cedwards 12:36 PM Juan Manuel Diggs RN Position: Monitor Time in: 12:36 cedwards 12:40 PM HR=72 bpm, MNZY=938/98 mmhg, SpO2=98.0 % 12:40 PM Time: 12:40 Oxygen on at 2 L/min per nasal cannula by Taya Fine RN cedwards 12:41 PM Time: 12:41 Versed 2 mg Intravenous Given by Taya Fine RN cedwards 12:45 PM HR=81 bpm, DJUT=560/77 mmhg, SpO2=97.0 % 12:46 PM Pressure channel 2 zeroed. 12:47 PM Recorded ECG: HR=75 Condition=Condition 1 12:48 PM Pressure channel 2 zeroed. 12:49 PM Clinical Presentation: Non-STEMI cedwards 12:50 PM HR=60 bpm, HVRU=902/91 mmhg, SpO2=99.0 %, Comment=NSR 12:51 PM Time: 12:35LOC: 4 = Oriented but drowsy cedwards 12:51 PM Time: 12:35 Patient comfortable and pain free: Yes cedwards 12:55 PM HR=51 bpm, FTOB=505/74 mmhg, SpO2=99.0 % 01:00 PM HR=59 bpm, BVRD=585/79 mmhg, FaZ8=171.0 % 01:02 PM Time out performed according to hospital policy cedwards 01:03 PM Time: 13:03 10 ml Lidocaine 2% to right groin Subcutaneous Given by Rafael Aparicio DO cedwards 01:04 PM Micro-Introducer Kit utilized for sheath placement cedwards 01:04 PM Access obtained by percutaneous puncture. 6Fr 10cm Terumo [place] sheath placed in right Femoral artery. [id number] cedwards 01:05 PM Time: 13:05 Versed 1 mg Intravenous Given by Taya Fine RN cedwards 01:05 PM HR=73 bpm, XTOO=611/93 mmhg, SpO2=99.0 %, Comment=NSR 01:06 PM 6Fr FR 4 catheter inserted over the wire [facility] ced 01:06 PM Time: 12:51 Patient comfortable and pain free: Yes cedwards 01:06 PM Time: 12:51LOC: 4 = Oriented but drowsy cedwards 01:06 PM Catheter selectively placed in left ventricle cedwards 01:06 PM Recorded Pressure: LV, HR=77, Condition=Condition 1 (Left Ventricle) LV 120/-14/8 01:07 PM Recorded Pressure: LV, Ao, HR=69, Condition=Condition 1 (Left Ventricle) LV 123/-5/6, (Aorta) Ao 120/71/92 01:07 PM Bolus angiogram of left Ventricle complete cedwards :07 PM RCA angiography performed in multiple views. cedwards 01:07 PM Catheter removed ced:08 PM 6Fr FL 4 catheter inserted over the wire [facility] cedwards :09 PM LCA angiography performed in multiple views. cedwards :09 PM Recorded Pressure: Ao, HR=70, Condition=Condition 1 (Aorta) Ao 118/80/98 01:10 PM Catheter removed cedwards 01:11 PM HR=79 bpm, CYNY=461/82 mmhg, SpO2=97.0 % 01:12 PM 6Fr XB LAD 3.5 Cordis guide catheter was used to cannulate the PCI vessel successfully. reused? No cedwards 01:12 PM .014 ChoICE PT Extra Support 300cm guide wire across target lesion- successful. reused? No cedwards 01:14 PM Pressure channel 2 zeroed. 01:14 PM ACT 158 cedwards 01:15 PM Time: 13:15 Heparin 3000 units Intravenous Given by Taya Fine RN cedwards 01:15 PM HR=66 bpm, XIEX=407/81 mmhg, SpO2=96.0 % 01:18 PM Asist FFR Catheter advanced to target lesion. cedwards 01:19 PM Time: 13:19 Adenosine 655 ml/hr administered Intravenous by Taya STEPHENS cedwards 01:20 PM HR=90 bpm, QUQR=582/78 mmhg, SpO2=96.0 % 01:21 PM Adenosine stopped cedwards : PM Time: 13:06 Patient comfortable and pain free: Yes cedwards :21 PM FFR Measurement: 0.78 cedwards :21 PM Time: 13:06LOC: 4 = Oriented but drowsy cedwards :21 PM Flow Wire/Catheter removed intact cedwards :22 PM Lesion found in Mid LAD. Pre Stenosis: 50 Pre EBONY Flow: 3: Complete and Brisk Flow/Perfusion cedwards 01:24 PM 2.5mm x 24mm Synergy drug-eluting stent across target lesion- successful Lot #[id number] cedwards 01:25 PM Inflation device was opened. cedwards 01:25 PM HR=77 bpm, MJZG=246/88 mmhg, SpO2=98.0 % 01:26 PM Stent deployed @ 14 zehra for 15 seconds cedwards :27 PM Stent delivery system removed intact. cedwards 01:28 PM Time: 13:27 Nitroglycerin 100 mcg Intracoronary Given by Rafael Aparicio DO cedwards 01:29 PM Guide wire removed intact. cedwards 01:30 PM Guide catheter removed intact. cedwards 01:30 PM HR=95 bpm, EAQY=317/80 mmhg, SpO2=94.0 % 01:32 PM Procedure completed at 13:32 cedwards 01:33 PM Time: 13:32 Brilinta 180 mg Orally Given by Taya Fine RN cedwards 01:33 PM ASA Class CLASS II- Mild systemic disease (i.e. well-controlled diabetes, hypertension, asthma, cigarette smoking) cedwards 01:34 PM Coronary Dominance: right cedwards 01:34 PM Sign out completed: Radiation Dose 488.69 mGy Fluoro Time: 4.3 Isovue 370 - 200ml contrast 110 ml given by Rafael Aparicio DO. Complications: NoneCardiac Rehab Consult needed: NoConfirmed administered medications: Yes cedwards :34 PM Isovue 370 - 200ml,1 Bottle(s) used. cedwards 01:35 PM Estimated Blood Loss: minimal cedwards 01:35 PM Post ECG NSR cedwards 01:35 PM Post Blood Pressure 119/80 cedwards 01:35 PM Information taught Cardiac Cath and PCI cedwards 01:35 PM Education needs Procedure, Plan of Care, and Responsibilities of Patient in Care cedwards 01:35 PM Learning barriers :None cedwards 01:35 PM Education Methods Verbal cedwards 01:35 PM Education evaluation Able to repeat information cedwards 01:35 PM Site status No bleeding/hematoma - Rt Groin as reported by Mary Carmen Hernandez RT at 13:35 cedwards 01:36 PM Plavix, Effient or Brilinta given Yes cedwards 01:36 PM Family not available cedwards 01:36 PM RBTA=331/89 mmhg 01:36 PM Fluoro Time: 4.3 cedwards 01:36 PM Isovue 370 - 200ml contrast [address] Aparicio. cedwards 01:36 PM Radiation Dose 488.69 mGy cedwards 01:36 PM Patient having chest pain 7 out of 10 cedwards 01:37 PM At 13:37 the ACT was 196 seconds. cedwards 01:37 PM Recorded ECG: HR=86 Condition=Condition 1 01:38 PM Vitals capture stopped. 01:38 PM Vitals capture started with the following parameters, Patient=Adult, Interval=5 min, Initial Ssdfllpa=511 mmHg, Deflation Rate=5 mmHg, Cuff placed on Right Arm 01:38 PM HR=83 bpm, AMWK=478/87 mmhg, SpO2=95.0 % 01:40 PM Time: 13:21LOC: 5 = Fully awake and oriented or at pre-proc level cedwards :41 PM Time: 13:41 Nitroglycerin 0.4 mcg Sublingual Given by Taya Fine RN cedwards 01:42 PM NIBP STAT measurement started. 01:43 PM HR=87 bpm, NWDH=002/93 mmhg, SpO2=94.0 %, Comment=NSR 01:47 PM Patient having chest pain Dr. Aparicio at bedside 12 lead EKG performed cedwards 01:48 PM GT=245 bpm, CWKV=634/100 mmhg, SpO2=96.0 %, Comment=NSR 01:[address] Aparicio deciding to go back in and take more pictures due to patients ongoing chest pain cedwards 02:34 PM Report called to Doroteo on [address] c[place] Complications Complication None Hemodynamics Pressures Site Systolic/A Wave Diastolic/V Wave Mean LV 120 -14 8 LV 123 -5 6 AO 120 71 92 AO 118 80 98 Post Procedure Information Blood Pressure: 119/80 mmHg Rhythm: NSR Post procedural instructions were given Closure Device Time Device Success/Fail 03/24/2018 1:38:00 PM Manual Compression Site Checks Time Location Status Staff Sheath In? Note 01:35 PM Rt Groin No bleeding/hematoma Mary Carmen Hernandez RT Pulses Updated by Juan Manuel Diggs RN on 03/24/2018 2:34:55 PM electronically signed on 03/24/2018 2:36:02 PM with status of Final
[2018-03-24] MEDS ORDERED: *HR* Atropine Sulfate 1 MG/10 ML SYRINGE ONE (15:07)
[2018-03-24] MEDS ORDERED: *HR* Morphine 2 MG/ML SYRINGE IVP STA (15:52)
[2018-03-24] MEDS: *HR* Ticagrelor 90 MG TABLET PO SCH (20:50)
--- NOTE | 2018-03-24 23:33 | Electrocardiograph Report ---
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
[2018-03-25 02:36] LABS: Basophils % 0.1 %; Eosinophils % 0.3 %; Hematocrit 35.5 % (37.5-50.1); Hemoglobin 12.1 g/dL (12.9-16.9); Immature Granulocytes % 0.7 % (0-4); Lymphocytes # 1.5 K/mcL (0.6-4.6); Lymphocytes % 19.1 %; Mean Corpuscular HGB Conc 34.1 g/dL (31.6-35.5); Mean Corpuscular Volume 85.1 fL (83.0-100.0); Mean Platelet Volume 10.4 fL (9.4-12.4); Monocytes # 0.5 K/mcL (0.0-1.3); Monocytes % 6.7 %; Neutrophils # 5.6 K/mcL (1.6-8.9); Platelet Count 177 K/mcL (140-400); Red Blood Count 4.17 M/mcL (4.19-5.50); Red Cell Distribution Width 12.4 % (11.5-14.5); Segmented Neutrophils % 73.1 %
--- NOTE | 2018-03-25 02:38 | Event Note ---
Date of Encounter: 03/25/18 Time of Encounter: 02:32 Paged by nurse that patient is having 4/10 chest pain. Nurse ordered EKG, I will go take a look at results. He had C today. I advised nurse to let cardiology news production supervisor know. I ordered STAT troponin. I will go examine patient.
[2018-03-25 02:56] LABS: BUN/Creatinine Ratio 16 (6-26); Blood Urea Nitrogen 18 mg/dL (8-23); Calcium 9.5 mg/dL (8.6-10.3); Carbon Dioxide 21 mEq/L (23-29); Chloride 109 mEq/L (98-107); Glucose 146 mg/dL (70-105); Osmolality,Calculated 289 (280-300); Potassium 3.7 mEq/L (3.5-5.1); Sodium 137 mEq/L (136-145); eGFR For African Americans > 60 (> 60); eGFR For Non-African Americans > 60 (> 60)
[2018-03-25 03:07] LABS: Troponin I 0.25 ng/mL (< 0.04)
[2018-03-25] MEDS: Cholecalciferol (D-3) 1,000 UNIT TABLET PO SCH (07:20)
[2018-03-25] MEDS: *HR* Ticagrelor 90 MG TABLET PO SCH (07:20)
[2018-03-25] MEDS: Aspirin 81 MG TAB.CHEW PO SCH (07:20)
[2018-03-25] MEDS: (Folic Acid [Fa-8] 0.8 MG) PO SCH (07:20)
[2018-03-25] MEDS: (Glucosamine Sulfate Dipot Chlr [Glucosamine] 1,000 M PO SCH (07:20)
[2018-03-25] MEDS: (Ubidecarenone [Coq10] 50 MG) PO SCH (07:20)
--- NOTE | 2018-03-25 10:09 | Cardiology Progress Note ---
Date of Encounter: 03/25/18 Time of Encounter: 09:20 Assessment and Plan (1) NSTEMI (non-ST elevated myocardial infarction) Current Visit: Yes Status: Acute Presented with typical chest pain symptoms and elevated troponin. TTE 03/24/18: LVEF 60%, normal wall motion, dilated aortic root 3.98 cm at level of sinuses--recommend dedicated CT scan in the outpatient setting. LHC 03/24/18: s/p successful PTCA/SUGAR to mLAD; otherwise no significant obstructive CAD. Patient reported severe chest pain following LHC, was taken back to lab which demonstrated patent LAD stent with no other findings. Has been chest pain free overnight. Recommend uninterrupted DAPT (asa + brilinta) for a minimum of 1 year--patient verbalized understanding. 30 day card provided. Add betablocker, continue statin, asa. Recommend PRN NTG tabs upon discharge. Cardiac rehab. Post PCI discharge instructions discussed. Cardiology will sign-off, will coordinate outpatient follow-up. Discussion w patient/family: The assessment and plan as outlined above was discussed with the patient and/or family members who expressed understanding and agreement. All questions were answered. Thank you for involving us in the care of your patient. Please call with any questions. The patient will be discussed and reviewed with Dr. Mary East; Cardiology will sign-off. Will coordinate outpatient follow-up. Subjective Principal diagnosis: NSTEMI Interval history: Seen and examined. No chest pain reported overnight. No reported pain or bleeding/issues with cath site. Objective Vital Signs, Last 4 Hours Temp Pulse Resp BP Pulse Ox 03/25/18 09:39 58 03/25/18 09:35 66 16 96 03/25/18 09:34 97 03/25/18 07:49 79.9 F L 78 16 153/105 97 General: Conversant HEENT: Atraumatic, Normocephaly Cardiac: Reg Rate and Rhythm, Normal S1 and S2 Lungs: Normal Breath Sounds Neuro: Alert and responsive Abdomen: Soft Skin: No rashes noted on visualized skin Musculoskeletal: No Chest Wall Tenderness Extremities: No Edema, Normal Pulses Other: right groin cath site: no hematoma, bleeding, or ecchymosis noted. +2 DP/PT pulses bilaterally. Results 03/25/18 02:09 03/25/18 02:09 Lab Results 03/25/18 03/25/18 02:09 02:09 WBC 7.6 Hgb 12.1 L Hct 35.5 L Plt Count 177 Sodium 137 Potassium 3.7 Chloride 109 H Carbon Dioxide 21 L BUN 18 Creatinine 1.10 Glucose 146 H Calcium 9.5 Troponin I 0.25 H* Active Medications Acetaminophen (Tylenol) 650 mg PO Q6HR PRN PRN Reason: Mild Pain/Fever Stop: 09/22/18 17:54 Aspirin (Aspirin) 81 mg PO DAILY CARYN Stop: 09/23/18 09:01 Last Admin: 03/25/18 07:20 Dose: 81 mg Metoprolol Tartrate (Lopressor) 25 mg PO BID CARYN Stop: 09/24/18 09:31 Last Admin: 03/25/18 09:44 Dose: 25 mg Naloxone HCl (Narcan) 0.4 mg IVP Q2MIN PRN PRN Reason: SEE COMMENTS Stop: 09/22/18 17:54 Pharmacy Profile Note (Patient Taking Own Medication) 0 each PO DAILY CARYN Stop: 09/23/18 09:01 Last Admin: 03/25/18 07:20 Dose: Not Given Pharmacy Profile Note (Patient Taking Own Medication) 0 each PO DAILY CARYN Stop: 09/23/18 09:01 Last Admin: 03/25/18 07:20 Dose: Not Given Pharmacy Profile Note (Patient Taking Own Medication) 0 each PO DAILY CARYN Stop: 09/23/18 09:01 Last Admin: 03/25/18 07:20 Dose: Not Given Simvastatin (Zocor) 10 mg PO HS [facility] Stop: 09/23/18 21:01 Last Admin: 03/24/18 20:49 Dose: 10 mg Tamsulosin HCl (Flomax) 0.8 mg PO DAILY CARYN PRN Reason: Protocol Stop: 09/23/18 09:01 Last Admin: 03/25/18 07:20 Dose: 0.8 mg Ticagrelor (Brilinta) 90 mg PO BID CARYN Stop: 09/23/18 21:01 Last Admin: 03/25/18 07:20 Dose: 90 mg Tramadol HCl (Ultram) 50 mg PO Q6HR PRN PRN Reason: Moderate Pain Stop: 09/22/18 17:54 Last Admin: 03/25/18 01:15 Dose: 50 mg Vitamin D (Vitamin D) 1,000 unit PO DAILY CARYN Stop: 09/23/18 09:01 Last Admin: 03/25/18 07:20 Dose: 1,000 unit - Imaging and Cardiology Cardiac cath: report reviewed Other Results: 12 hour tele: avg HR=69 SR. No significant event noted. - EKG Interpretation EKG results cardiology: personally reviewed Consult Discharge Plan - Plan Referrals: Paul Owens MD [Primary Care Provider] - 03/31/18 3:00 pm Rita Fermin AUGER MACHINE OFFBEARER [Advanced Practice Nurse] - (office will call patient at home with follow up appointment)
--- NOTE | 2018-03-25 10:20 | Discharge Summary ---
- NOTES TO OUTPATIENT PROVIDER Notes to Outpatient Provider: s/p coronary stenting, on ASA and Brilinta now Date of Encounter: 03/25/18 Time of Encounter: 10:18 - Discharge Diagnosis (1) NSTEMI (non-ST elevated myocardial infarction) Priority: Primary Status: Acute (2) Chest pain Priority: Primary Status: Acute Qualifiers: Chest pain type: unspecified Qualified Code(s): R07.9 - Chest pain, unspecified (3) Hyperlipidemia Priority: Secondary Status: Chronic Qualifiers: Hyperlipidemia type: unspecified Qualified Code(s): E78.5 - Hyperlipidemia , unspecified Hospital course: Mr. Shi is a 72 year old male with the above medical problems, admitted with chest pain. Serial troponins showed gradual elevation up to 0.25 along with active chest pain. He was started on telemetry monitoring along with aspirin, statin and beta chet. Echocardiogram was done which showed preserved ejection fraction, mild LV diastolic dysfunction. Cardiology was consulted and patient underwent left heart catheterization and received drug-eluting stent to mid LAD. He had another episode of chest pain overnight, however vital signs remained stable and is doing well today. Cardiology has cleared the patient for discharge, he is otherwise medically stable. He was explained the importance of uninterrupted therapy with aspirin and Brilinta. Discharge discussed with: patient - Time Spent with Patient Total time spent providing and/or coordinating discharge services: Greater than 30 minutes (45 min) - Discharge Medications Prescriptions: Nitroglycerin 0.4 mg SL Q5MIN PRN #30 tab.subl PRN Reason: Chest Pain Metoprolol [Lopressor] 25 mg PO BID #60 tablet Ticagrelor [Brilinta] 90 mg PO BID #60 tablet Home Medications: Aspirin 81 mg PO DAILY 11/14/17 [History] Pravastatin Sodium [Pravachol] 20 mg PO DAILY 11/14/17 [History] Tamsulosin [Flomax] 0.8 mg PO DAILY 11/14/17 [History] Cholecalciferol (D-3) [Vitamin D] 1,000 unit PO DAILY 03/23/18 [History] Folic Acid [FA-8] 0.8 mg PO DAILY 03/23/18 [History] Glucosamine Sulfate Dipot Chlr [Glucosamine] 1,000 mg PO DAILY 03/23/18 [History ] Saw [place] 80 mg PO DAILY 03/23/18 [History] Ubidecarenone [Coq10] 50 mg PO DAILY 03/23/18 [History] Metoprolol [Lopressor] 25 mg PO BID #60 tablet 03/25/18 [Rx] Nitroglycerin 0.4 mg SL Q5MIN PRN #30 tab.subl 03/25/18 [Rx] Ticagrelor [Brilinta] 90 mg PO BID #60 tablet 03/25/18 [Rx] Allergies/Adverse Reactions: 3 Allergy/AdvReac Type Severity Reaction Status Date / Time No Known Allergies Allergy Verified 03/23/18 14:11 Date of admission: 03/24/18 15:05 Primary care physician: Paul Owens MD Discharging clinician: Carolina Whitt Anticipated date of discharge: 03/25/18 - Constitutional Vitals: Temp Pulse Resp BP Pulse Ox 79.9 F L 58 16 153/105 96 03/25/18 07:49 03/25/18 09:39 03/25/18 09:35 03/25/18 07:49 03/25/18 09:35 General appearance: Present: A&O X 3, answers questions appropriately - Cardiovascular Cardiovascular exam: Present: RRR, +S1, +S2. Absent: diastolic murmur, gallop, rubs, systolic murmur - Patient Status Disposition: Home, Self-Care Condition: Good Functional capacity at discharge: independent ambulation Overall status at discharge: patient is progressing back to baseline - Discharge Instructions Instructions: Myocardial Infarction (DC), Chest Pain (DC), Left Heart Catheterization (DC) Follow Up With: Paul Owens MD [Primary Care Provider] - 03/31/18 3:00 pm Rita Fermin CNP [Advanced Practice Nurse] - (office will call patient at home with follow up appointment) - Diet and Activity Activity: resume usual activities as tolerated (post-cath restrictions per Cardiology) Diet: low fat, low cholesterol, low salt diet
[2018-03-25 11:07] VITALS: BP 121/83
[2018-03-25] MEDS ORDERED: Adenosine 90 MG/30 ML MLS IV ONE (11:47)
--- NOTE | 2018-03-27 14:15 | Electrocardiograph Report ---
[address] [address] Test Date: 2018-03-25 Pat Name: Glen Shi Department: 110 Room: 01 Gender: M Electoral Officer: : 1945 Requested By: Rafael Aparicio Order Number: [id number] Reading MD: Radha Lan Measurements Intervals [place] Rate: 79 P: 53 NM: 175 QRS: 7 QRSD: 76 T: 20 QT: 389 QTc: 424 Interpretive Statements SINUS RHYTHM Electronically Signed On 03-27-2018 14:14:18 EDT by Radha Lan
--- NOTE | 2018-03-28 09:37 | Invasive Diagnostic Lab Proc ---
Name: Glen Shi Date of Study: 03/24/2018 Date: 1945 Ht: 65.0in Medical Record#: [id number] Age: 72 Wt: 171.96lb Gender: Male BSA: 1.85 Order #: [id number] BMI: 28.65 Physicians Procedure Physician: RAFAEL APARICIO DO Referring MD: Referring MD: Staff Name Position Time In Mary Carmen Hernandez RT Scrub 01:58 PM Taya Fine RN Database Management System Specialist 01:58 PM Juan Manuel Diggs RN Monitor 01:58 PM Indications Indication Non-Stemi Procedures Performed Procedure CORONARY ARTERY ANGIO S&I Pre-Procedure Checklist Informed consent is complete signed and on chart. H&P is on chart. ID band is on and ID verified with patient. Patient NPO for procedure The procedure was described for the patient and questions were answered. ECG is on chart. Plan of Care Patient will tolerate the procedure without complications. Adequate level of comfort will be maintained. Hemodynamics will remain stable Patient will recover from procedure without complications. Respiratory function will be maintained. Cardiac rhythm will remain stable. Patient temperature will be maintained. Patient and/or family have verbalized understanding of the procedure. Patient Education Intravenous Access Time IV Size Location DC'd Fluid/Drip Rate Units RN 01:55 PM 18g 1 11/10" Patent On Arrival Lt Antecubital Allergies No Known Allergies Vital Signs Time BP (mmHg) HR (bpm) O2 Sat. RR (bpm) LOC 01:54 PM 143 / 98 98 95 % 14 4 = Oriented but drowsy 01:59 PM 151 / 99 104 97 % 14 4 = Oriented but drowsy 02:04 PM 126 / 90 106 96 % 14 4 = Oriented but drowsy Procedural Medications Time Medication Dose Units Method Given By 01:58 PM Nitroglycerin 100 mcg Intracoronary Rafael Aparicio DO 02:01 PM Morphine 2 mg Intravenous Taya Fine RN ASA Classification: CLASS II- Mild systemic disease (i.e. well-controlled diabetes, hypertension, asthma, cigarette smoking) Jeremy Score Preprocedure Postprocedure Activity 2- Moves 4 extremities sustained head lift Activity 2- Moves 4 extremities sustained head lift Circulation 2- SBP +/= 20 points of pre-anesthetic level Circulation 2- SBP +/= 20 points of pre-anesthetic level Consciousness 2- Awake and alert oriented x 3 Consciousness 2- Awake and alert oriented x 3 O2 Saturation 2- Able to maintain O2 satruation of 92% on room air O2 Saturation 2- Able to maintain O2 satruation of 92% on room air Respiratory 2- Able to deep breathe and cough well Respiratory 2- Able to deep breathe and cough well Total Score 10 Total Score 10 Contrast Agent: Isovue Diagnostic Contrast: 100 ml Total Contrast: 100 ml Fluoro Dose: 608 mGy Procedure Log Time Note Enter By 01:55 PM Pt arrived to sleep lab technologist 2 at 13:55 cedwards 01:56 PM Physician arrived 13:56, Patient with ongoing chest pain cedwards 01:56 PM Meet and greet completed cedwards 01:56 PM Sign in performed according to hospital policy. cedwards 01:56 PM Procedure start 13:56 cedwards 01:56 PM Time: 13:56 Patient comfortable and pain free: No cedwards 01:56 PM Time: 13:56LOC: 4 = Oriented but drowsy cedwards 01:56 PM Time out performed according to hospital policy cedwards 01:56 PM Sheath exchanged for a 6 Fr 11 cm Cordis Siomara sheath [id number] cedwards 01:57 PM 6Fr FL 4 catheter inserted over the wire DNC cedwards 01:57 PM LCA angiography performed in multiple views. cedwards 01:58 PM Mary Carmen Hernandez RT Position: Scrub Time in: 13:58 cedwards 01:58 PM Taya Fine RN Position: Database Management System Specialist Time in: 13:58 cedwards 01:58 PM Juan Manuel Diggs RN Position: Monitor Time in: 13:58 cedwards 01:59 PM Time: 13:58 Nitroglycerin 100 mcg Intracoronary Given by Rafael Aparicio DO cedwards 02:01 PM Time: 14:01 Morphine 2 mg Intravenous Given by Taya Fine RN cedwards 02:10 PM Chest Pain rated at a 4 out of 10 cedwards 02:11 PM Did you address EBONY flow and Dominance? Yes cedwards 02:11 PM Procedure completed at 14:11 cedwards 02:12 PM Sign out completed: Radiation Dose 608.25 mGy Fluoro Time: 4.3 Isovue 370 - 200ml contrast 100 ml given by RAFAEL APARICIO DO. Complications: NoneCardiac Rehab Consult needed: YesConfirmed administered medications: Yes cedwards 02:15 PM Sheath left in place to be pulled on floor/holding areaV+Pad cedwards 02:16 PM Estimated Blood Loss: minimal cedwards 02:16 PM Information taught Cardiac Cath and PCI cedwards 02:16 PM Education needs Procedure, Plan of Care, and Responsibilities of Patient in Care cedwards 02:17 PM Education evaluation Able to repeat information cedwards 02:17 PM Learning barriers :None cedwards 02:17 PM Education Methods Verbal cedwards 02:18 PM Plavix, Effient or Brilinta given Yes cedwards 02:34 PM Report given to Doroteo STEPHENS Pt taken to 2N. 14:34 cedwards 02:35 PM Patient out of room: 14:35 cedwards 02:36 PM Complications: None cedwards 06:07 PM Coronary Dominance: right cedwards Complications Complication None None Hemodynamics Post Procedure Information Post procedural instructions were given Closure Device Time Device Success/Fail 03/24/2018 2:13:00 PM Manual Compression Pulses Updated by Juan Manuel Diggs RN on 03/27/2018 6:08:14 PM electronically signed on 03/28/2018 7:47:47 AM with status of Final
== END 2018-03-25 11:48 | disposition home or self-care (01) | DRG 247 ==
LOC: EMEROO 11:42 → 3BNU 11:42 → 2NNU 03-24 14:02 → SUATTDRO 03-24 15:05
PROVIDERS: ADMIT Student in an Organized Health Care Education/Training Program; ATTEND Internal Medicine

== ENCOUNTER 2018-04-25 11:23 | Observation (INO) ==
[2018-04-25] MEDS ORDERED: Aspirin 81 MG TAB.CHEW PO ONE (11:30)
[2018-04-25] MEDS ORDERED: 0.9 % Sodium Chloride 500 ML IVC ONE (11:30)
--- NOTE | 2018-04-25 11:33 | Emergency Department Note ---
Disposition Clinical Impression: Chest pain Qualifiers: Chest pain type: unspecified Qualified Code(s): R07.9 - Chest pain, unspecified Disposition: Admitted As Inpatient Condition: Good Referrals: Paul Owens MD [Primary Care Provider] - Time of Disposition: 14:34 Chest Pain HPI - General Stated Complaint: chest pain Time Seen by Provider: 04/25/18 11:30 Source: patient, family Mode of arrival: ambulatory Limitations: no limitations Vital Signs Reviewed: Yes Nursing Notes Reviewed: Yes - History of Present Illness HPI Narrative: 72-year-old had a stent placed a week ago took a Viagra this morning. He went to the gym to work out and developed chest pain took a nitroglycerin and his blood pressure dropped. His chest pain is better although he still has some pressure. 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 Duration: constant Onset: during exertion Pain Location: substernal, left chest Severity scale (1-10): 1 Quality: tightness, aching Pain Radiation: none Improves with: nothing Worsens with: nothing Context: recent illness (Stent placed a week ago.) Associated symptoms: Reports: dyspnea - Related Data Home Medications Medication Instructions Recorded Confirmed Aspirin 81 mg PO DAILY 11/14/17 04/25/18 Pravastatin Sodium [Pravachol] 20 mg PO DAILY 11/14/17 04/25/18 Tamsulosin [Flomax] 0.8 mg PO DAILY 11/14/17 04/25/18 Cholecalciferol (D-3) [Vitamin D] 1,000 unit PO DAILY 03/23/18 04/25/18 Folic Acid [FA-8] 0.8 mg PO DAILY 03/23/18 04/25/18 Glucosamine Sulfate Dipot Chlr 1,000 mg PO DAILY 03/23/18 04/25/18 [Glucosamine] Saw [place] 80 mg PO DAILY 03/23/18 04/25/18 Ubidecarenone [Coq10] 50 mg PO DAILY 03/23/18 04/25/18 Clopidogrel [Plavix] 75 mg PO DAILY 04/25/18 04/25/18 Previous Rx's Medication Instructions Recorded Metoprolol [Lopressor] 25 mg PO BID #60 tablet 03/25/18 Nitroglycerin 0.4 mg SL Q5MIN PRN #30 tab.subl 03/25/18 Allergies Allergy/AdvReac Type Severity Reaction Status Date / Time No Known Allergies Allergy Verified 04/25/18 14:15 Constitutional: Denies: fever, chills, weakness, weight change Eyes: Denies: eye pain, eye discharge, vision change ENT ED: Denies: ear pain, throat pain, dental pain, hearing loss, epistaxis, congestion, dysphagia Cardiovascular: Reports: chest pain. Denies: palpitations, dyspnea on exertion , edema, syncope Respiratory: Denies: cough, dyspnea, wheezes, hemoptysis, stridor Gastrointestinal: Denies: abdominal pain, nausea, vomiting, diarrhea, constipation, hematemesis, melena, hematochezia Genitourinary: Denies: urgency, dysuria, frequency, hematuria Musculoskeletal: Denies: back pain, neck pain, arthralgia, myalgia Integumentary: Denies: rash, abrasion, lesions Neurological: Denies: headache, weakness, numbness, paresthesias, confusion, abnormal gait, vertigo Psychiatric: Denies: anxiety, depression, suicidal thoughts, homicidal thoughts , auditory hallucinations, visual hallucinations Endocrine: Denies: fatigue Hematological/Lymphatic: Denies: easy bleeding, easy bruising Allergic/Immunologic: Denies: facial swelling, urticaria Chest Pain PMH - Past Medical History Medical history: Reports: arthritis, GERD, other Surgical history: Reports: angioplasty/stent, orthopedic, other, vasectomy, other Psychiatric history: Reports: no psych history - Social History Smoking Status: Never smoker Alcohol use: Reports: rarely Drug use: Reports: none Physical Exam - General Limitations: no limitations General appearance: alert, in no apparent distress - Head Head exam: atraumatic, normocephalic, normal inspection - Eye Eye exam: Present: normal appearance, PERRL, EOMI - ENT ENT exam: normal exam, normal oropharynx, mucous membranes moist - Neck Neck exam: Present: normal inspection, full ROM, trachea midline - Chest Chest inspection: Present: normal inspection, symmetric chest wall rise - Respiratory Respiratory exam: Present: normal lung sounds bilaterally - Cardiovascular Cardiovascular exam: Present: regular rate, normal rhythm, normal heart sounds - Abdominal Exam Abdominal exam: Present: soft, Non-Tender. Absent: tenderness, distention, guarding, rebound, rigidity - Extremities Exam Extremities exam: Present: normal inspection, full ROM. Absent: tenderness, pedal edema - Expanded Lower Extremity Exam Neurovascular/Tendon exam: Absent: motor deficit, sensory deficit, tendon deficit Gait: observed and normal - Back Exam Back exam: Present: normal inspection, full ROM. Absent: tenderness - Neurological Exam Neurological exam: Present: alert, oriented X3 - Psychiatric Psychiatric exam: Present: normal affect, normal mood - Skin Skin exam: Present: warm, dry, intact, normal color Course - Reevaluation(s) Reevaluation #1: 72-year-old with a history of recent stent who took a Viagra then took nitroglycerin today. He was having chest pain at the gym. Workup here is negative. Consult cardiology we will admit for observation. Time: 14:33 - Consultations Consultation #1: Discussed with Dr. Lan, admit. Time: 13:36 Consultation #2: Discussed with Dr. Malik, admit Time: 14:33 Vital Signs Temperature 98.1 F 04/25/18 11:27 Pulse Rate 99 04/25/18 11:27 Respiratory Rate 18 04/25/18 11:27 Blood Pressure 109/80 04/25/18 11:27 O2 Sat by Pulse Oximetry 94 04/25/18 11:27 Temperature 98.1 F 04/25/18 11:27 Pulse Rate 99 04/25/18 14:07 Respiratory Rate 17 04/25/18 14:07 Blood Pressure 120/80 04/25/18 14:07 O2 Sat by Pulse Oximetry 96 04/25/18 14:07 Oxygen Delivery Oxygen Delivery Room Air Chest Pain - Lab Data Lab results reviewed: Yes I reviewed the patient's lab results. Result diagrams: 04/25/18 11:43 04/25/18 11:43 Lab Results 04/25/18 04/25/18 04/25/18 Range/Units 11:43 11:43 11:43 WBC 4.8 (4.3-11.1) K/mcL RBC 3.90 L (4.19-5.50) M/mcL Hgb 11.5 L (12.9-16.9) g/dL Hct 33.6 L (37.5-50.1) % MCV 86.2 (83.0-100.0) fL MCH 29.5 (28.0-33.3) pg MCHC 34.2 (31.6-35.5) g/dL RDW 12.1 (11.5-14.5) % Plt Count 148 (140-400) K/mcL MPV 9.9 (9.4-12.4) fL Immature Gran % 0.4 (0-4) % Seg Neutrophils % 72.8 % Lymphocytes % 17.5 % Monocytes % 8.3 % Eosinophils % 0.6 % Basophils % 0.4 % Neutrophils # 3.5 (1.6-8.9) K/mcL Lymphocytes # 0.8 (0.6-4.6) K/mcL Monocytes # 0.4 (0.0-1.3) K/mcL Eosinophils # 0.0 (0.0-0.6) K/mcL Basophils # 0.0 (0.0-0.2) K/mcL PT 11.6 (9.4-12.1) Seconds INR 1.1 APTT 30.5 (26.0-36.0) Seconds Sodium 139 (136-145) mEq/L Potassium 3.5 (3.5-5.1) mEq/L Chloride 112 H (98-107) mEq/L Carbon Dioxide 21 L (23-29) mEq/L BUN 20 (8-23) mg/dL Creatinine 1.12 (0.70-1.30) mg/dL Est GFR ( Amer) > 60 (> 60) Est GFR (Non-Af Amer) > 60 (> 60) BUN/Creatinine Ratio 18 (6-26) Glucose 105 (70-105) mg/dL Calculated Osmolality 291 (280-300) Calcium 8.9 (8.6-10.3) mg/dL Troponin I < 0.03 (< 0.04) ng/mL - Radiology Data Radiology results reviewed: Yes I reviewed the patient's radiology results. Chest X-Ray 04/25/18 11:30 IMPRESSION: No acute cardiopulmonary findings. D/ / Madison Morton MD / Madison Morton MD Interpreting Provider: Madison Morton MD - EKG Data EKG attestation: Yes I reviewed and interpreted this EKG. EKG shows normal: sinus rhythm Rate: tachycardia Rhythm: NSR [place]/QRS: normal Interpretation: no acute changes Heart Score - Score History: Moderately Suspicious EKG: Non Specific repolarisation Disturbance Age: Greater than 65 Risk Factors: Equal/Greater than 3 risk factor or history of atherosclerotic disease Troponin: Less than normal limit HEART Score Total: 6
[2018-04-25 11:55] LABS: Basophils % 0.4 %; Eosinophils % 0.6 %; Hematocrit 33.6 % (37.5-50.1); Hemoglobin 11.5 g/dL (12.9-16.9); Immature Granulocytes % 0.4 % (0-4); Lymphocytes # 0.8 K/mcL (0.6-4.6); Lymphocytes % 17.5 %; Mean Corpuscular HGB Conc 34.2 g/dL (31.6-35.5); Mean Corpuscular Hemoglobin 29.5 pg (28.0-33.3); Mean Corpuscular Volume 86.2 fL (83.0-100.0); Mean Platelet Volume 9.9 fL (9.4-12.4); Monocytes # 0.4 K/mcL (0.0-1.3); Monocytes % 8.3 %; Neutrophils # 3.5 K/mcL (1.6-8.9); Platelet Count 148 K/mcL (140-400); Red Cell Distribution Width 12.1 % (11.5-14.5); Segmented Neutrophils % 72.8 %
[2018-04-25 12:03] LABS: INR 1.1; Prothrombin Time 11.6 Seconds (9.4-12.1)
[2018-04-25 12:05] LABS: Activated Partial Thrombo Time 30.5 Seconds (26.0-36.0)
[2018-04-25 12:16] LABS: Troponin I < 0.03 ng/mL (< 0.04)
[2018-04-25 13:05] LABS: BUN/Creatinine Ratio 18 (6-26); Blood Urea Nitrogen 20 mg/dL (8-23); Calcium 8.9 mg/dL (8.6-10.3); Carbon Dioxide 21 mEq/L (23-29); Chloride 112 mEq/L (98-107); Glucose 105 mg/dL (70-105); Osmolality,Calculated 291 (280-300); Potassium 3.5 mEq/L (3.5-5.1); Sodium 139 mEq/L (136-145); eGFR For African Americans > 60 (> 60); eGFR For Non-African Americans > 60 (> 60)
--- NOTE | 2018-04-25 19:38 | Internal Med History&Physical ---
Date of Encounter: 04/25/18 Time of Encounter: 18:00 Internal Medicine - H&P: HPI Chief complaint: Chest pain Admitted From: Home History of present illness: Patient is a 72-year-old male with past medical history significant for coronary arterial disease with recent stent 1 month ago, hypertension and hyperlipidemia who presented to the ER on 04/25/18 after experiencing chest pain and shortness of breath. Patient reported that he woke up this morning in his normal state of health and after taking Viagra and having sex, he decided to go work out on exercise bike. While working on exercise by patient reported of feeling more short of breath and normal. Patient reported that his shortness of breath did not improve after he ceased exercising and also experienced chest discomfort so called EMS to bring him into the hospital for evaluation. Patient also took a nitroglycerin at home before coming into the hospital. In the ER, patients cardiac enzymes were negative as was chest x-ray. Patient will be admitted to medical surgical floor for observation. Past Med Surg Social Fam HX - Past Medical History Medical history: arthritis, GERD, other Additional medical history: enlarged prostate, Psychiatric history: no psych history - Past Surgical History Surgical History: angioplasty/stent, orthopedic, other, vasectomy, other Additional surgical history: rt shoulder replacement. colonoscopy. stent - Social History Smoking Status: Never smoker Smokeless Tobacco Status: No Alcohol use: rarely Drug use: none - Family History Father Living Status: Hx Family Cardiac Disorders: Yes Internal Medicine - H&P: Meds Aspirin 81 mg PO DAILY 11/14/17 [History] Pravastatin Sodium [Pravachol] 20 mg PO DAILY 11/14/17 [History] Tamsulosin [Flomax] 0.8 mg PO DAILY 11/14/17 [History] Cholecalciferol (D-3) [Vitamin D] 1,000 unit PO DAILY 03/23/18 [History] Folic Acid [FA-8] 0.8 mg PO DAILY 03/23/18 [History] Glucosamine Sulfate Dipot Chlr [Glucosamine] 1,000 mg PO DAILY 03/23/18 [History ] Saw [place] 80 mg PO DAILY 03/23/18 [History] Ubidecarenone [Coq10] 50 mg PO DAILY 03/23/18 [History] Metoprolol [Lopressor] 25 mg PO BID #60 tablet 03/25/18 [Rx] Nitroglycerin 0.4 mg SL Q5MIN PRN #30 tab.subl 03/25/18 [Rx] Clopidogrel [Plavix] 75 mg PO DAILY 04/25/18 [History] 3 Allergy/AdvReac Type Severity Reaction Status Date / Time ticagrelor [From Brilinta] AdvReac Difficulty Verified 04/25/18 17:55 Breathing All Systems PM: A 10-system review of systems was performed and is negative for pertinent findings except as documented above in the HPI. - Constitutional Vitals: Temp Pulse Resp BP Pulse Ox 97.8 F 91 15 123/85 96 04/25/18 17:49 04/25/18 17:49 04/25/18 17:49 04/25/18 17:49 04/25/18 17:53 General appearance: Present: A&O X 3, no acute distress - Eye Eye exam: Present: normal appearance - ENT ENT exam: Present: mucous membranes moist - Respiratory Respiratory exam: Present: CTAB. Absent: accessory muscle use, rales, rhonchi, wheezes - Cardiovascular Cardiovascular exam: Present: RRR, +S1, +S2. Absent: diastolic murmur, gallop, rubs, systolic murmur - GI/Abdominal GI/Abdominal exam: Present: normal bowel sounds, soft, no peritoneal signs. Absent: distended, tenderness - Neurological Exam Neurological exam: Present: oriented X3 - Psychiatric Psychiatric exam: Present: normal mood - Skin Skin exam: Present: normal color Internal Med - H&P Results - Labs CBC & Chem 7: 04/25/18 11:43 04/25/18 11:43 - Assessment and plan (1) Chest pain Current Visit: Yes Status: Acute Assessment and plan: Patient experienced chest pain after sexual intercourse and exercising Initial troponins negative Will monitor on telemetry and trend serial troponins Cardiology consulted and appreciate recommendations Qualifiers: Chest pain type: unspecified Qualified Code(s): R07.9 - Chest pain, unspecified (2) CAD (coronary artery disease) Current Visit: Yes Status: Acute Assessment and plan: Patient reports of having a stent placed one month ago Continue aspirin/Plavix in addition to beta chet and statin Qualifiers: Qualified Code(s): I25.10 - Atherosclerotic heart disease of [place] coronary artery without angina pectoris (3) Hyperlipidemia Current Visit: No Status: Chronic Assessment and plan: Continue statin Qualifiers: Hyperlipidemia type: unspecified Qualified Code(s): E78.5 - Hyperlipidemia , unspecified (4) DVT prophylaxis Current Visit: Yes Status: Acute Assessment and plan: Subcutaneous heparin - Time Spent With Patient Total time spent is greater than 50% in coordination of care (as documented) at patient's floor/unit and/or counseling patient:
[2018-04-25] MEDS ORDERED: Nitroglycerin 0.4 MG TAB.SUBL SL PRN (19:41)
[2018-04-25] MEDS ORDERED: Naloxone 0.4 MG/ML INJ IVP PRN (19:43)
[2018-04-26] MEDS: *HR* Heparin 5,000 UNIT/ML VIAL SQ SCH ×4 (01:30→20:45)
[2018-04-26 01:49] LABS: Basophils % 0.4 %; Eosinophils # 0.1 K/mcL (0.0-0.6); Eosinophils % 1.7 %; Hematocrit 33.7 % (37.5-50.1); Hemoglobin 11.3 g/dL (12.9-16.9); Immature Granulocytes % 0.4 % (0-4); Lymphocytes # 1.4 K/mcL (0.6-4.6); Lymphocytes % 26.4 %; Mean Corpuscular HGB Conc 33.5 g/dL (31.6-35.5); Mean Corpuscular Hemoglobin 29.1 pg (28.0-33.3); Mean Corpuscular Volume 86.9 fL (83.0-100.0); Mean Platelet Volume 10.3 fL (9.4-12.4); Monocytes # 0.4 K/mcL (0.0-1.3); Monocytes % 7.3 %; Neutrophils # 3.4 K/mcL (1.6-8.9); Platelet Count 162 K/mcL (140-400); Red Blood Count 3.88 M/mcL (4.19-5.50); Red Cell Distribution Width 12.5 % (11.5-14.5); Segmented Neutrophils % 63.8 %
[2018-04-26 02:11] LABS: BUN/Creatinine Ratio 17 (6-26); Blood Urea Nitrogen 20 mg/dL (8-23); Calcium 9.5 mg/dL (8.6-10.3); Carbon Dioxide 22 mEq/L (23-29); Chloride 111 mEq/L (98-107); Glucose 182 mg/dL (70-105); Osmolality,Calculated 297 (280-300); Potassium 3.8 mEq/L (3.5-5.1); Sodium 140 mEq/L (136-145); eGFR For African Americans > 60 (> 60); eGFR For Non-African Americans > 60 (> 60)
[2018-04-26] MEDS ORDERED: Cholecalciferol (D-3) 1,000 UNIT TABLET PO SCH (09:00)
[2018-04-26] MEDS ORDERED: NON-FORMULARY MEDICATION 1 EACH EACH (Pravastatin Sodium [Pravachol] 20 MG) PO SCH (09:00)
[2018-04-26] MEDS ORDERED: Aspirin 81 MG TAB.CHEW PO SCH (09:00)
[2018-04-26] MEDS: Folic Acid 1 MG TABLET PO SCH (09:29)
[2018-04-26] MEDS: Cholecalciferol (D-3) 1,000 UNIT TABLET PO SCH (09:29)
[2018-04-26] MEDS: Aspirin 81 MG TAB.CHEW PO SCH (09:29)
[2018-04-26] MEDS: (Glucosamine Sulfate Dipot Chlr [Glucosamine] 1,000 MG) PO SCH (09:30)
[2018-04-26] MEDS: (Ubidecarenone [Coq10] 50 MG) PO SCH (09:30)
[2018-04-26] MEDS ORDERED: GI Cocktail 40 ML EACH PO ONE (09:53)
--- NOTE | 2018-04-26 10:24 | Cardiology Consult Note ---
<Kip Jackson - Last Filed: 04/26/18 13:29> Date of Encounter: 04/26/18 Time of Encounter: 10:15 Assessment and Plan (1) Chest pain Current Visit: Yes Status: Acute - Atypical chest pain (exertional, dull, but still present and not relieved by NTG) - Troponin negative x3. - EKG shows no new ischemic findings when compared to previous. - Recent cardiac workup including echo and LHC on 03/24/18: EF 60%, mild diastolic dysfunction. 1 stent placed in mid LAD at that time. - Chest pain is somewhat reproducible on exam, states it is tender but not the same pain Plan - Suspect some aspect of stable angina but also suspect some GI or MSK component - Will increase BB to metoprolol 37.5 mg BID - Consider ranexa if pain not improved. Not a canidate for imdur due to viagra use, will discuss with patient. - Reports pain is gone after GI cocktail. Agreeable to monitor for the afternoon and if no further pain reported, will sign off without further testing. Start PPI. Will discuss further plan with Dr. Lan. Qualifiers: Chest pain type: unspecified Qualified Code(s): R07.9 - Chest pain, unspecified (2) Hyperlipidemia Current Visit: Yes Status: Chronic Continue statin Qualifiers: Hyperlipidemia type: unspecified Qualified Code(s): E78.5 - Hyperlipidemia , unspecified (3) Hypotension Current Visit: Yes Status: Resolved - Resolved - Reportedly Bp was 80/? via EMS - Secondary to viagra with NTG use. - This was discussed with patient. Qualifiers: Hypotension type: hypotension due to drug Qualified Code(s): I95.2 - Hypotension due to drugs (4) CAD (coronary artery disease) Current Visit: Yes Status: Chronic - As above for chest pain Qualifiers: Coronary Disease-Associated Artery/Lesion type: [place] artery [place] vs. transplanted heart: [place] heart Associated angina: with stable angina Qualified Code(s): I25.118 - Atherosclerotic heart disease of [place] coronary artery with other forms of angina pectoris Discussion w patient/family: The assessment and plan as outlined above was discussed with the patient and/or family members who expressed understanding and agreement. All questions were answered. Thank you for involving us in the care of your patient. Please call with any questions. History of Present Illness Consult date: 04/26/18 Requesting physician: Jose Zelaya Consult reason: Chest pain Chief complaint: Chest pain, SOB History of present illness: Mr. Shi is a 72 year old male with past medical history of CAD status post stent, left heart catheter on 03/24/18 with drug-eluting stent placed to the mid LAD. He presented to the emergency room with a complaint of chest pain, shortness of breath 1 day. He states that he took a Viagra early yesterday morning at approximately one half hour later he decided to use an exercise bike. During the course of his exercise he became to experience dull diffuse chest pain and shortness of breath and decided taken nitroglycerin at that time. After this, he was still experiencing persistent chest pain, shortness of breath and decided to call EMS. During interview today, patient is still having some discomfort in his chest and states that the nitroglycerin did help a little bit. He states he was unaware that he was not supposed to take Viagra and NTG. Recent cardiac testing includes an echocardiogram on 03/24/18 showing ejection fraction of 60% with mild LVH and mild diastolic dysfunction. Left heart catheterization on also 03/24/18 showed a severe single-vessel disease of the LAD with 1 drug-eluting stent placed at that time. After the catheterization he also was experiencing severe chest pain is probably back to the Lungs which showed a patent stent at that time. This admission, he was reportedly hypotensive when EMS arrived however upon arrival to the emergency room blood pressure has been within normal limits. EKG shows no new ischemic findings. Chest x-ray was unremarkable. He states he has been compliant on his aspirin, Plavix, beta chet, statin. Past Med Surg Social Fam HX - Past Medical History Medical history: arthritis, GERD, other Additional medical history: enlarged prostate, Psychiatric history: no psych history - Past Surgical History Surgical History: angioplasty/stent, orthopedic, other, vasectomy, other Additional surgical history: rt shoulder replacement. colonoscopy. stent - Social History Smoking Status: Never smoker Smokeless Tobacco Status: No Alcohol use: rarely Drug use: none - Family History Father Living Status: Hx Family Cardiac Disorders: Yes Medications and Allergies Aspirin 81 mg PO DAILY 11/14/17 [History] Pravastatin Sodium [Pravachol] 20 mg PO DAILY 11/14/17 [History] Tamsulosin [Flomax] 0.8 mg PO DAILY 11/14/17 [History] Cholecalciferol (D-3) [Vitamin D] 1,000 unit PO DAILY 03/23/18 [History] Folic Acid [FA-8] 0.8 mg PO DAILY 03/23/18 [History] Glucosamine Sulfate Dipot Chlr [Glucosamine] 1,000 mg PO DAILY 03/23/18 [History ] Saw [place] 80 mg PO DAILY 03/23/18 [History] Ubidecarenone [Coq10] 50 mg PO DAILY 03/23/18 [History] Metoprolol [Lopressor] 25 mg PO BID #60 tablet 03/25/18 [Rx] Nitroglycerin 0.4 mg SL Q5MIN PRN #30 tab.subl 03/25/18 [Rx] Clopidogrel [Plavix] 75 mg PO DAILY 04/25/18 [History] 3 Allergy/AdvReac Type Severity Reaction Status Date / Time ticagrelor [From Brilinta] AdvReac Difficulty Verified 04/25/18 17:55 Breathing All Systems Review: The remainder of the systems were reviewed and are negative - Constitutional Constitutional: no chills, no fever(s) - Cardiovascular Cardiovascular: chest pain at rest, chest pain with exertion, dyspnea on exertion, palpitations, rapid heart rate (subjective), no dyspnea at rest, no leg edema, no orthopnea - Respiratory Respiratory: cough, dyspnea - Gastrointestinal Gastrointestinal: no diarrhea, no nausea - Neurological Neurological: no numbness, no tingling Physical Examination Vital Signs, Last 4 Hours Temp Pulse Resp BP Pulse Ox 04/26/18 08:10 97.8 F 59 18 172/94 98 General: Conversant, No Apparent Distress HEENT: Atraumatic, Normocephaly, Mucus Membranes Moist Neck: No JVD, Normal carotid pulses Cardiac: Reg Rate and Rhythm, Normal S1 and S2, No Murmur Lungs: Normal Breath Sounds, No Wheeze, Rales, Rhonchi Neuro: Alert and responsive, No focal deficits noted Abdomen: Soft, Non-Tender Skin: No rashes noted on visualized skin Musculoskeletal: No Chest Wall Tenderness Extremities: No Clubbing, No Cyanosis, No Edema, Normal Pulses Results 04/26/18 01:21 04/26/18 01:21 Lab Results 04/25/18 04/26/18 04/26/18 19:53 01:21 01:21 WBC 5.4 Hgb 11.3 L Hct 33.7 L Plt Count 162 Sodium Potassium Chloride Carbon Dioxide BUN Creatinine Glucose Calcium Troponin I < 0.03 < 0.03 04/26/18 04/26/18 01:21 07:32 WBC Hgb Hct Plt Count Sodium 140 Potassium 3.8 Chloride 111 H Carbon Dioxide 22 L BUN 20 Creatinine 1.18 Glucose 182 H Calcium 9.5 Troponin I < 0.03 Consult Discharge Plan - Plan Referrals: Paul Owens MD [Primary Care Provider] - <TeddyRadha martinez - Last Filed: 04/26/18 14:05> Date of Encounter: 04/26/18 - Attending Attestation I examined this patient and my medical decision-making was reviewed with the WOOD CREW SUPERVISOR. I agree with the documented findings, disposition and treatment plan as described. Mr. Shi had an episode of chest pain while riding his exercise bike yesterday. Just prior to this he had taken a Viagra and had intercourse with his . He subsequently took a SL NTG which inevitably dropped his BP. He presented to the ER. He states that his dull chest discomfort persisted unchanged throughout the day yesterday and overnight into today. He received a GI cocktail which resolved his discomfort today. He does report a history of GERD. He was taking Tums intermittently. Remotely had taken prilosec with some reported nonspecific side effects. I suggested we start him on an alternative PPI and observe him over the day. He did just recently start DAPT after PCI and possibly has gastritis. He othewise has been ruled out for ACS - troponins negative, no ischemic ECG findings. Could consider stress testing but doubt this would be helpful - normal coronaries except for area that was stented. Would have expected a more dramatic presentation if this was acute stent thrombosis. Patient expressed understanding and agree with the plan. He has an upcoming office visit with his Artificial Glass Eye Maker. Assessment and Plan Discussion w patient/family: The assessment and plan as outlined above was discussed with the patient and/or family members who expressed understanding and agreement. All questions were answered. Thank you for involving us in the care of your patient. Please call with any questions. History of Present Illness History of present illness: Mr. Shi is a 72 year old male All Systems Review: The remainder of the systems were reviewed and are negative Physical Examination Vital Signs, Last 4 Hours Temp Pulse Resp BP Pulse Ox 04/26/18 11:02 97.6 F 60 18 169/98 98 Results 04/26/18 01:21 04/26/18 01:21 Lab Results 04/25/18 04/26/18 04/26/18 19:53 01:21 01:21 WBC 5.4 Hgb 11.3 L Hct 33.7 L Plt Count 162 Sodium Potassium Chloride Carbon Dioxide BUN Creatinine Glucose Calcium Troponin I < 0.03 < 0.03 04/26/18 04/26/18 01:21 07:32 WBC Hgb Hct Plt Count Sodium 140 Potassium 3.8 Chloride 111 H Carbon Dioxide 22 L BUN 20 Creatinine 1.18 Glucose 182 H Calcium 9.5 Troponin I < 0.03
[2018-04-26] MEDS ORDERED: hydrOXYzine pamoate 25 MG CAPSULE PO ONE (10:32)
[2018-04-26] MEDS: Famotidine 20 MG TABLET PO SCH (12:22)
--- NOTE | 2018-04-26 14:52 | Electrocardiograph Report ---
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
--- NOTE | 2018-04-26 16:09 | Internal Med Progress Note ---
Date of Encounter: 04/26/18 Time of Encounter: 10:20 - Assessment and plan (1) Chest pain Current Visit: Yes Status: Acute Assessment and plan: Patient reports history of substernal chest pain without radiation. He also reports the pain sometimes is migratory within his chest at different times. He reports that the pain is worse with deep inspiration, movement, and palpation. Chest pain is reproducible with palpation, though it is not as intense as normal. 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 Suspect some chest pain is related to anxiety. He reports that the pain happens primarily at night when he is trying to rest, he states when he is alone he begins "having crazy thoughts." Troponins are negative. Initial EKG showed sinus tachycardia with a rate of 104 , PA interval 191, QRS 77, QTC 399, QTC 400. Recent echocardiogram in Mar, 2018 shows LVEF 60%, mild concentric LV hypertrophy, mild LV DD, mild pulmonic regurgitation. Patient had C 03/24/18 that showed coronary artery disease and recommend optimal medical therapy and aggressive risk factor modification. Patient was given GI cocktail and hydroxyzine, reports relief of chest pain. Patient has been evaluated by cardiology. They have increased beta chet to metoprolol 37.5 mg twice daily, consider Ranexa as the pain is not improved. Agree to monitor and most likely will discharge in the morning. Patient has been started on PPI. Continue centerless grinder labs and vitals. Qualifiers: Chest pain type: unspecified Qualified Code(s): R07.9 - Chest pain, unspecified (2) Hyperlipidemia Current Visit: Yes Status: Chronic Assessment and plan: Chronic. Continue statin Qualifiers: Hyperlipidemia type: unspecified Qualified Code(s): E78.5 - Hyperlipidemia , unspecified (3) CAD (coronary artery disease) Current Visit: Yes Status: Chronic Assessment and plan: Patient reports of having a stent placed one month ago. Continue aspirin/Plavix in addition to beta chet and statin Continue telemetry Plan as above. Qualifiers: Coronary Disease-Associated Artery/Lesion type: [place] artery [place] vs. transplanted heart: [place] heart Associated angina: with stable angina Qualified Code(s): I25.118 - Atherosclerotic heart disease of [place] coronary artery with other forms of angina pectoris (4) Anxiety Current Visit: Yes Status: Acute Assessment and plan: Suspect patient's chest pain apparently related anxiety. He reports that he does not sleep well at night, he reports sometimes when he does. He drinks a week suddenly and states that he has racing thoughts at night and is unable to sleep. He reports that the less he sleeps, the more chest pain he has, more anxiety he has. 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 Patient states that he felt better after taking hydroxyzine 25 mg by mouth 1 Melatonin 3 mg tonight hs Rx for hydroxyzine for home, recommend follow up with PCP and counseling center. (5) Epigastric pain Current Visit: Yes Status: Acute Assessment and plan: Patient received adequate relief of epigastric/chest pain with GI cocktail. He has been started on a PPI. He denies any nausea or vomiting. There is mild tenderness to palpation in epigastric area. He denies heartburn/GERD symptoms. Omeprazole 20 mg by mouth daily. Recommend follow-up with primary care, possible referral to GI for EGD. - Time Spent With Patient Total time spent is greater than 50% in coordination of care (as documented) at patient's floor/unit and/or counseling patient: less than 15 minutes - Subjective Interval history: Patient was seen and assessed the bedside at 10:10 AM. Patient reports substernal chest pain that is worse with deep inspiration, movement, and palpation. Ports recent cough and URI symptoms that he is just now recovering from. Patient states that sometimes the pain is migratory and changes places within his chest. Patient reports that he is not sleeping well, chest pain happens primarily at night when he is trying to rest. He also reports at times he dozes off and awakens gasping for air and begins feeling a little anxious. 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 Patient was given hydroxyzine in the GI cocktail and reports relief from symptoms. He denies headache, blurred vision, any further URI symptoms, abdominal pain, nausea, vomiting, diarrhea. Cardiology has evaluated patient and recommend patient stay overnight for continued evaluation, most likely will discharge in the morning. - Constitutional Vitals: Temp Pulse Resp BP Pulse Ox 97.6 F 60 18 169/98 98 04/26/18 11:02 04/26/18 11:02 04/26/18 11:02 04/26/18 11:02 04/26/18 11:02 General appearance: Present: A&O X 3, pleasant, no acute distress, answers questions appropriately - Head Head exam: Present: atraumatic, normal inspection, normocephalic - Eye Eye exam: Present: normal appearance, conjuntiva pink, sclera anicteric - Neck Neck exam general surgery: Present: supple, trachea midline. Absent: lymphadenopathy, tenderness - Respiratory Respiratory exam: Present: CTAB. Absent: accessory muscle use, chest wall tenderness, rales, rhonchi, wheezes - Cardiovascular Cardiovascular exam: Present: RRR, +S1, +S2. Absent: diastolic murmur, gallop, rubs, systolic murmur - GI/Abdominal GI/Abdominal exam: Present: normal bowel sounds, soft, tenderness. Absent: distended, hepatomegaly - Extremities Exam Extremities exam: Present: normal capillary refill, normal inspection, warm, radial pulses palpable and symmetrical. Absent: calf tenderness, cyanotic, pedal edema, tenderness - Neurological Exam Neurological exam: Present: alert, oriented X3, no focal deficits. Absent: facial droop, speech deficit - Skin Skin exam: Present: dry, intact, normal color, warm. Absent: rash Internal Medicine: Result - Labs CBC & Chem 7: 04/26/18 01:21 04/26/18 01:21 Labs: Short CBC 04/26/18 Range/Units 01:21 WBC 5.4 (4.3-11.1) K/mcL Hgb 11.3 L (12.9-16.9) g/dL Hct 33.7 L (37.5-50.1) % Plt Count 162 (140-400) K/mcL Neutrophils # 3.4 (1.6-8.9) K/mcL BMP 04/26/18 01:21 Sodium 140 Potassium 3.8 Chloride 111 H Carbon Dioxide 22 L BUN 20 Creatinine 1.18 Glucose 182 H Calcium 9.5 Cardiac Enzymes 04/25/18 04/26/18 04/26/18 Range/Units 19:53 01:21 07:32 Troponin I < 0.03 < 0.03 < 0.03 (< 0.04) ng/mL - ABG Interpretation ABG results: PT/INR, D-dimer PT 11.6 Seconds (9.4-12.1) 04/25/18 11:43 Consult Discharge Plan - Plan Referrals: Paul Owens MD [Primary Care Provider] -
[2018-04-26] MEDS ORDERED: Melatonin 3 MG TABLET PO SCH (21:00)
[2018-04-27] MEDS: *HR* Heparin 5,000 UNIT/ML VIAL SQ SCH (05:37)
[2018-04-27 07:07] LABS: Basophils % 0.2 %; Eosinophils # 0.1 K/mcL (0.0-0.6); Eosinophils % 1.8 %; Hematocrit 35.2 % (37.5-50.1); Hemoglobin 11.7 g/dL (12.9-16.9); Immature Granulocytes % 0.2 % (0-4); Lymphocytes # 1.5 K/mcL (0.6-4.6); Lymphocytes % 27.3 %; Mean Corpuscular HGB Conc 33.2 g/dL (31.6-35.5); Mean Corpuscular Volume 87.1 fL (83.0-100.0); Mean Platelet Volume 10.2 fL (9.4-12.4); Monocytes # 0.4 K/mcL (0.0-1.3); Monocytes % 7.6 %; Neutrophils # 3.5 K/mcL (1.6-8.9); Platelet Count 182 K/mcL (140-400); Red Blood Count 4.04 M/mcL (4.19-5.50); Red Cell Distribution Width 12.6 % (11.5-14.5); Segmented Neutrophils % 62.9 %
[2018-04-27 07:16] VITALS: BP 142/89
[2018-04-27 07:27] LABS: BUN/Creatinine Ratio 18 (6-26); Blood Urea Nitrogen 21 mg/dL (8-23); Calcium 9.7 mg/dL (8.6-10.3); Carbon Dioxide 23 mEq/L (23-29); Chloride 110 mEq/L (98-107); Glucose 113 mg/dL (70-105); Osmolality,Calculated 292 (280-300); Potassium 4.1 mEq/L (3.5-5.1); Sodium 139 mEq/L (136-145); eGFR For African Americans > 60 (> 60); eGFR For Non-African Americans > 60 (> 60)
--- NOTE | 2018-04-27 08:01 | Discharge Summary ---
- NOTES TO OUTPATIENT PROVIDER Notes to Outpatient Provider: Pt was admitted for chest pain. Troponins negative , EKG without ST changes, pt had recent LHC with pEF in March and stent placed in mid LAD. Pain was somewhat reproducible and pt describes anxiety recently. Pain was not relieved with Ntg, but was relieved with GI cocktail and he was also given Hydroxyzine for anxiety and he reports complete resolution of symptoms. He was evaluated by cardiology and was placed on low dose BB. Recommend follow up for medication refills and for continued monitoring. Date of Encounter: 04/27/18 Time of Encounter: 09:15 - Discharge Diagnosis (1) Chest pain Priority: Primary Status: Acute Assessment and Plan: Pt denies chest pain. Reports relief of pain from GI cocktail and will be discharged with PPI. Continue BB, hydroxyzine, home medications. Qualifiers: Chest pain type: unspecified Qualified Code(s): R07.9 - Chest pain, unspecified (2) Hyperlipidemia Priority: Secondary Status: Chronic Assessment and Plan: Chronic. Continue statin Qualifiers: Hyperlipidemia type: unspecified Qualified Code(s): E78.5 - Hyperlipidemia , unspecified (3) CAD (coronary artery disease) Priority: Secondary Status: Chronic Assessment and Plan: Patient reports of having a stent placed one month ago. Continue aspirin/Plavix in addition to beta chet and statin Chest pain has resolved. Qualifiers: Coronary Disease-Associated Artery/Lesion type: [place] artery [place] vs. transplanted heart: [place] heart Associated angina: with stable angina Qualified Code(s): I25.118 - Atherosclerotic heart disease of [place] coronary artery with other forms of angina pectoris (4) Anxiety Priority: Secondary Status: Acute Assessment and Plan: Pt reports resolution of symptoms with Hydroxyzine. Rx for hydroxyzine for home, recommend follow up with PCP and counseling center. (5) Epigastric pain Priority: Secondary Status: Acute Assessment and Plan: Plan as above. Hospital course: Mr. Shi is a 72 year old male with PMh of CAD and recent stent placement on DAPT, NSTEMI, HLD, CAD. See assessment and plan/ notes to provider for hospital course. Discharge discussed with: patient, nurse - Time Spent with Patient Total time spent providing and/or coordinating discharge services: Less than 30 minutes - Discharge Medications Prescriptions: hydrOXYzine pamoate [HydrOXYzine Pamoate] 25 mg PO BID PRN #15 capsule PRN Reason: Anxiety Omeprazole [PriLOSEC] 20 mg PO DAILY@0630 #30 capsule. Home Medications: Aspirin 81 mg PO DAILY 11/14/17 [History] Pravastatin Sodium [Pravachol] 20 mg PO DAILY 11/14/17 [History] Tamsulosin [Flomax] 0.8 mg PO DAILY 11/14/17 [History] Cholecalciferol (D-3) [Vitamin D] 1,000 unit PO DAILY 03/23/18 [History] Folic Acid [FA-8] 0.8 mg PO DAILY 03/23/18 [History] Glucosamine Sulfate Dipot Chlr [Glucosamine] 1,000 mg PO DAILY 03/23/18 [History ] [place] 80 mg PO DAILY 03/23/18 [History] Ubidecarenone [Coq10] 50 mg PO DAILY 03/23/18 [History] Metoprolol [Lopressor] 25 mg PO BID #60 tablet 03/25/18 [Rx] Nitroglycerin 0.4 mg SL Q5MIN PRN #30 tab.subl 03/25/18 [Rx] Clopidogrel [Plavix] 75 mg PO DAILY 04/25/18 [History] Omeprazole [PriLOSEC] 20 mg PO DAILY@0630 #30 capsule. 04/27/18 [Rx] hydrOXYzine pamoate [HydrOXYzine Pamoate] 25 mg PO BID PRN #15 capsule 04/27/18 [Rx] Allergies/Adverse Reactions: 3 Allergy/AdvReac Type Severity Reaction Status Date / Time ticagrelor [From Brilinta] AdvReac Difficulty Verified 04/25/18 17:55 Breathing Date of admission: 04/25/18 14:59 Primary care physician: Paul Owens MD Discharging clinician: Annel Pascual Anticipated date of discharge: 04/27/18 - Constitutional Vitals: Temp Pulse Resp BP Pulse Ox 97.8 F 55 18 142/89 96 04/27/18 07:11 04/27/18 07:11 04/27/18 07:11 04/27/18 07:11 04/27/18 07:11 General appearance: Present: cooperative, A&O X 3, pleasant, no acute distress, answers questions appropriately - Head Head exam: Present: atraumatic, normal inspection, normocephalic - Eye Eye exam: Present: normal appearance, conjuntiva pink, sclera anicteric - Neck Neck exam general surgery: Present: supple, trachea midline. Absent: lymphadenopathy - Respiratory Respiratory exam: Present: CTAB. Absent: accessory muscle use, chest wall tenderness, rales, rhonchi, wheezes - Cardiovascular Cardiovascular exam: Present: RRR, +S1, +S2. Absent: diastolic murmur, gallop, rubs, systolic murmur - GI/Abdominal GI/Abdominal exam: Present: normal bowel sounds, soft. Absent: distended, hepatomegaly, tenderness - Extremities Exam Extremities exam: Present: normal capillary refill, normal inspection, warm, radial pulses palpable and symmetrical. Absent: calf tenderness, cyanotic, pedal edema, tenderness - Neurological Exam Neurological exam: Present: alert, oriented X3, no focal deficits. Absent: facial droop, speech deficit - Skin Skin exam: Present: dry, intact, normal color, warm. Absent: rash - Patient Status Disposition: Home, Self-Care Condition: Good Functional capacity at discharge: independent ambulation Overall status at discharge: patient is back to baseline - Discharge Instructions Follow Up With: Paul Owens MD [Primary Care Provider] - Forms: ED Satisfaction Letter Additional Instructions: Follow up with your PCP within the next 7-10 days for a recheck. Take your medications as directed. Your new prescriptions are at your pharmacy. Resume your normal activities and diet as tolerated. Return to the ER as needed for any other problems or concerns, or if your symptoms return or worsen. - Diet and Activity Activity: increase activity as tolerated Diet: advance to your usual diet
[2018-04-27] MEDS: Aspirin 81 MG TAB.CHEW PO SCH (09:17)
[2018-04-27] MEDS: Folic Acid 1 MG TABLET PO SCH (09:17)
[2018-04-27] MEDS: Famotidine 20 MG TABLET PO SCH (09:17)
[2018-04-27] MEDS: Cholecalciferol (D-3) 1,000 UNIT TABLET PO SCH (09:17)
[2018-04-27] MEDS: (Glucosamine Sulfate Dipot Chlr [Glucosamine] 1,000 MG) PO SCH (09:18)
[2018-04-27] MEDS: (Ubidecarenone [Coq10] 50 MG) PO SCH (09:18)
--- NOTE | 2018-04-27 11:31 | Cardiology Progress Note ---
Date of Encounter: 04/27/18 Time of Encounter: 09:10 Assessment and Plan (1) Chest pain Status: Resolved - Atypical chest pain (exertional, dull, but still present and not relieved by NTG) - Troponin negative x3. - EKG shows no new ischemic findings when compared to previous. - Recent cardiac workup including echo and LHC on 03/24/18: EF 60%, mild diastolic dysfunction. 1 stent placed in mid LAD at that time. - Chest pain is somewhat reproducible on exam, states it is tender but not the same pain - Chest pain resolved after GI cocktail. Plan - Suspect GI component given relief with GI cocktail. Pepcid started - Advised to work up to strenuous exercise. - Increased BB to metoprolol 37.5 mg BID yesterday - Continue BB, ASA, plavix, statin - Patient scheduled for discharge today. OK by cardiology standpoint. Will discuss further plan with Dr. [place]. Qualifiers: Chest pain type: unspecified Qualified Code(s): R07.9 - Chest pain, unspecified (2) Hyperlipidemia Status: Chronic Continue statin Qualifiers: Hyperlipidemia type: unspecified Qualified Code(s): E78.5 - Hyperlipidemia , unspecified (3) Hypotension Status: Resolved - Resolved - Reportedly Bp was 80/? via EMS - Secondary to viagra with NTG use. - This was discussed with patient. Qualifiers: Hypotension type: hypotension due to drug Qualified Code(s): I95.2 - Hypotension due to drugs (4) CAD (coronary artery disease) Status: Chronic - As above for chest pain Qualifiers: Coronary Disease-Associated Artery/Lesion type: [place] artery [place] vs. transplanted heart: [place] heart Associated angina: with stable angina Qualified Code(s): I25.118 - Atherosclerotic heart disease of [place] coronary artery with other forms of angina pectoris Discussion w patient/family: The assessment and plan as outlined above was discussed with the patient and/or family members who expressed understanding and agreement. All questions were answered. Thank you for involving us in the care of your patient. Please call with any questions. Subjective Principal diagnosis: Chest pain Interval history: Patient seen and examined at bedside this morning. He states overall he is doing very well with no further complaints of chest pain at this time. The GI cocktail. He was given yesterday seemed to have helped his pain a lot. Denies any further symptoms of chest pain, shortness of breath, nausea, vomiting, diarrhea, fevers, chills. We did discuss using himself back into physical activity as he has stopped this patient quite some time. We also discussed that he has not to use nitroglycerin after using Viagra. He expresses understanding at this Objective General: Conversant, No Apparent Distress HEENT: Atraumatic, Normocephaly, Mucus Membranes Moist Neck: No JVD, Normal carotid pulses Cardiac: Reg Rate and Rhythm, Normal S1 and S2, No Murmur Lungs: Normal Breath Sounds, No Wheeze, Rales, Rhonchi Neuro: Alert and responsive, No focal deficits noted Skin: No rashes noted on visualized skin Musculoskeletal: No Chest Wall Tenderness Extremities: No Clubbing, No Cyanosis, No Edema, Normal Pulses Results 04/27/18 06:30 04/27/18 06:30 Lab Results 04/27/18 04/27/18 06:30 06:30 WBC 5.5 Hgb 11.7 L Hct 35.2 L Plt Count 182 Sodium 139 Potassium 4.1 Chloride 110 H Carbon Dioxide 23 BUN 21 Creatinine 1.15 Glucose 113 H Calcium 9.7 Consult Discharge Plan - Plan Instructions: Omeprazole (By mouth), Hydroxyzine (By mouth), Chest Pain (DC) Additional Instructions: Follow up with your PCP within the next 7-10 days for a recheck. Take your medications as directed. Your new prescriptions are at your pharmacy. Resume your normal activities and diet as tolerated. Return to the ER as needed for any other problems or concerns, or if your symptoms return or worsen. Referrals: Paul Owens MD [Primary Care Provider] - 05/02/18 3:00 pm Prescriptions: hydrOXYzine pamoate [HydrOXYzine Pamoate] 25 mg PO BID PRN #15 capsule PRN Reason: Anxiety Omeprazole [PriLOSEC] 20 mg PO DAILY@629 #30 capsule.
== END 2018-04-27 11:04 | disposition home or self-care (01) ==
LOC: EMEROO 11:23 → 3BNU 11:23
PROVIDERS: ADMIT Hospitalist; ATTEND Hospitalist

== ENCOUNTER 2019-11-15 19:14 | Observation (INO) ==
[2019-11-15] MEDS: 0.9 % Sodium Chloride 1,000 ML IVC SCH (19:48)
[2019-11-15 20:58] LABS: BUN/Creatinine Ratio 24 (6-26); Blood Urea Nitrogen 26 mg/dL (8-23); Calcium 9.3 mg/dL (8.6-10.3); Carbon Dioxide 18 mEq/L (23-29); Chloride 109 mEq/L (98-107); Glucose 114 mg/dL (70-105); Osmolality,Calculated 296 (280-300); Potassium 3.9 mEq/L (3.5-5.1); Sodium 140 mEq/L (136-145); eGFR For African Americans > 60 (> 60); eGFR For Non-African Americans > 60 (> 60)
[2019-11-15 21:00] LABS: Troponin I < 0.03 ng/mL (< 0.04)
[2019-11-15 21:07] LABS: Basophils % 0.2 %; Eosinophils % 0.6 %; Hematocrit 42.7 % (37.5-50.1); Hemoglobin 14.5 g/dL (12.9-16.9); Immature Granulocytes % 0.3 % (0-4); Lymphocytes # 0.5 K/mcL (0.6-4.6); Lymphocytes % 7.4 %; Mean Corpuscular Hemoglobin 30.1 pg (28.0-33.3); Mean Corpuscular Volume 88.6 fL (83.0-100.0); Monocytes # 0.3 K/mcL (0.0-1.3); Monocytes % 4.3 %; Neutrophils # 5.7 K/mcL (1.6-8.9); Platelet Count 152 K/mcL (140-400); Red Blood Count 4.82 M/mcL (4.19-5.50); Red Cell Distribution Width 12.3 % (11.5-14.5); Segmented Neutrophils % 87.2 %; White Blood Count 6.5 K/mcL (4.3-11.1)
[2019-11-15 21:14] LABS: Thyroid Stimulating Hormone 0.695 mcIU/mL (0.340-5.600)
[2019-11-16] MEDS ORDERED: Naloxone 0.4 MG/ML INJ IVP PRN (02:44)
[2019-11-16] MEDS: 0.9 % Sodium Chloride 1,000 ML IVC SCH (03:43)
[2019-11-16] MEDS ORDERED: *HR* Heparin 5,000 UNIT/ML VIAL SQ SCH (06:00)
[2019-11-16 06:02] LABS: Hematocrit 36.1 % (37.5-50.1); Mean Corpuscular HGB Conc 33.5 g/dL (31.6-35.5); Mean Corpuscular Hemoglobin 29.8 pg (28.0-33.3); Mean Corpuscular Volume 88.9 fL (83.0-100.0); Mean Platelet Volume 9.9 fL (9.4-12.4); Platelet Count 134 K/mcL (140-400); Red Blood Count 4.06 M/mcL (4.19-5.50); Red Cell Distribution Width 12.5 % (11.5-14.5); White Blood Count 4.8 K/mcL (4.3-11.1)
[2019-11-16 06:08] LABS: Troponin I 0.04 ng/mL (< 0.04)
[2019-11-16 06:19] LABS: Hemoglobin 12.1 g/dL (12.9-16.9)
[2019-11-16 06:21] LABS: BUN/Creatinine Ratio 23 (6-26); Blood Urea Nitrogen 25 mg/dL (8-23); Calcium 8.6 mg/dL (8.6-10.3); Carbon Dioxide 19 mEq/L (23-29); Chloride 108 mEq/L (98-107); Glucose 124 mg/dL (70-105); Magnesium 1.6 mg/dL (1.6-2.6); Osmolality,Calculated 296 (280-300); Phosphorous 2.7 mg/dL (2.7-4.5); Potassium 3.9 mEq/L (3.5-5.1); Sodium 140 mEq/L (136-145); eGFR For African Americans > 60 (> 60); eGFR For Non-African Americans > 60 (> 60)
[2019-11-16] MEDS ORDERED: Aspirin 81 MG TAB.CHEW PO SCH (09:00)
[2019-11-16] MEDS ORDERED: Metoprolol XL (24 HR) Succ 50 MG TAB.ER.24H PO SCH (10:57)
[2019-11-16 11:46] VITALS: BP 123/81
== END 2019-11-16 17:02 | disposition home or self-care (01) ==
LOC: 2NENU 19:14 → EMEROOARM 19:14 → SUATTDRO 22:07 → 2NENU 23:08
PROVIDERS: ADMIT Internal Medicine; ATTEND Internal Medicine

== ENCOUNTER 2020-09-02 19:53 | Observation (INO) ==
[2020-09-02 20:33] LABS: Basophils % 0.3 %; Eosinophils # 0.1 K/mcL (0.0-0.6); Eosinophils % 1.1 %; Hematocrit 38.1 % (37.5-50.1); Hemoglobin 12.6 g/dL (12.9-16.9); Immature Granulocytes % 0.2 % (0-4); Lymphocytes # 1.9 K/mcL (0.6-4.6); Lymphocytes % 30.1 %; Mean Corpuscular HGB Conc 33.1 g/dL (31.6-35.5); Mean Corpuscular Hemoglobin 29.2 pg (28.0-33.3); Mean Corpuscular Volume 88.2 fL (83.0-100.0); Monocytes # 0.5 K/mcL (0.0-1.3); Monocytes % 7.4 %; Neutrophils # 3.9 K/mcL (1.6-8.9); Platelet Count 163 K/mcL (140-400); Red Blood Count 4.32 M/mcL (4.19-5.50); Red Cell Distribution Width 12.4 % (11.5-14.5); Segmented Neutrophils % 60.9 %; White Blood Count 6.4 K/mcL (4.3-11.1)
[2020-09-02 20:38] LABS: Prothrombin Time 11.9 Seconds (9.4-12.1)
[2020-09-02 20:42] LABS: Activated Partial Thrombo Time 27.2 Seconds (26.0-36.0)
[2020-09-02 20:51] LABS: BUN/Creatinine Ratio 18 (6-26); Blood Urea Nitrogen 20 mg/dL (8-23); Carbon Dioxide 20 mEq/L (23-29); Chloride 107 mEq/L (98-107); Glucose 130 mg/dL (70-105); Osmolality,Calculated 294 (280-300); Potassium 3.4 mEq/L (3.5-5.1); Sodium 140 mEq/L (136-145); Troponin I < 0.03 ng/mL (< 0.04); eGFR For African Americans > 60 (> 60); eGFR For Non-African Americans > 60 (> 60)
[2020-09-02] MEDS ORDERED: Naloxone 0.4 MG/ML INJ IVP PRN (22:31)
[2020-09-03] MEDS ORDERED: Ondansetron 4 MG/2 ML VIAL IVP PRN (00:49)
[2020-09-03] MEDS ORDERED: Nitroglycerin 0.4 MG TAB.SUBL SL PRN (00:49)
[2020-09-03 02:20] LABS: Hematocrit 34.7 % (37.5-50.1); Hemoglobin 11.6 g/dL (12.9-16.9); Mean Corpuscular HGB Conc 33.4 g/dL (31.6-35.5); Mean Corpuscular Hemoglobin 29.9 pg (28.0-33.3); Mean Corpuscular Volume 89.4 fL (83.0-100.0); Platelet Count 165 K/mcL (140-400); Red Blood Count 3.88 M/mcL (4.19-5.50); Red Cell Distribution Width 12.6 % (11.5-14.5)
[2020-09-03 02:44] LABS: Alanine Aminotransferase 19 Units/L (7-52); Albumin 3.8 g/dL (3.5-5.7); Albumin/Globulin Ratio 1.7 (1.1-2.2); Alkaline Phosphatase 48 Units/L (34-104); Aspartate Amino Transferase 18 Units/L (13-39); BUN/Creatinine Ratio 18 (6-26); Bilirubin,Total 0.6 mg/dL (0.3-1.0); Blood Urea Nitrogen 20 mg/dL (8-23); Calcium 9.2 mg/dL (8.6-10.3); Carbon Dioxide 24 mEq/L (23-29); Chloride 109 mEq/L (98-107); Globulin 2.2 g/dL (2.4-3.5); Glucose 193 mg/dL (70-105); Magnesium 1.9 mg/dL (1.6-2.6); Osmolality,Calculated 298 (280-300); Phosphorous 3.2 mg/dL (2.7-4.5); Potassium 3.7 mEq/L (3.5-5.1); Sodium 140 mEq/L (136-145); eGFR For African Americans > 60 (> 60); eGFR For Non-African Americans > 60 (> 60)
[2020-09-03] MEDS ORDERED: Potassium Chloride Elixir 20 MEQ/15 ML UDC PO ONE (02:50)
[2020-09-03 02:52] LABS: Troponin I 0.04 ng/mL (< 0.04)
[2020-09-03] MEDS: *HR* Heparin 5,000 UNIT/ML VIAL SQ SCH ×2 (05:41→16:40)
[2020-09-03] MEDS: Aspirin 81 MG TAB.CHEW PO SCH (08:42)
[2020-09-03] MEDS ORDERED: Regadenoson 0.4 MG/5 ML SYRINGE IVP ONE (10:05)
[2020-09-03] MEDS ORDERED: Perflutren Lipid Microsphere 1.3 ML in 0.9 % Sodium Chloride 8.7 ML IVP PRN (12:22)
[2020-09-04] MEDS: *HR* Heparin 5,000 UNIT/ML VIAL SQ SCH (05:32)
[2020-09-04 07:51] VITALS: BP 142/83
[2020-09-04] MEDS: Aspirin 81 MG TAB.CHEW PO SCH (08:02)
[2020-09-04] MEDS ORDERED: Cholecalciferol (D-3) 1,000 UNIT (25MCG) TABLET PO SCH (09:00)
[2020-09-04] MEDS ORDERED: Ascorbic Acid 500 MG TABLET PO SCH (09:00)
== END 2020-09-04 10:33 | disposition home or self-care (01) ==
LOC: 3BNU 19:53 → EMEROOARM 19:53 → 3BNU 22:22
PROVIDERS: ADMIT Internal Medicine; ATTEND Internal Medicine

== ENCOUNTER 2020-09-17 11:52 | Observation (INO) ==
[2020-09-17 12:30] LABS: Basophils % 0.6 %; Eosinophils # 0.1 K/mcL (0.0-0.6); Eosinophils % 1.8 %; Hematocrit 36.4 % (37.5-50.1); Hemoglobin 12.2 g/dL (12.9-16.9); Immature Granulocytes % 0.2 % (0-4); Lymphocytes # 1.4 K/mcL (0.6-4.6); Lymphocytes % 26.9 %; Mean Corpuscular HGB Conc 33.5 g/dL (31.6-35.5); Mean Corpuscular Volume 89.4 fL (83.0-100.0); Mean Platelet Volume 10.3 fL (9.4-12.4); Monocytes # 0.4 K/mcL (0.0-1.3); Monocytes % 7.6 %; Neutrophils # 3.2 K/mcL (1.6-8.9); Platelet Count 182 K/mcL (140-400); Red Blood Count 4.07 M/mcL (4.19-5.50); Red Cell Distribution Width 12.3 % (11.5-14.5); Segmented Neutrophils % 62.9 %; White Blood Count 5.1 K/mcL (4.3-11.1)
[2020-09-17 12:53] LABS: Alanine Aminotransferase 21 Units/L (7-52); Albumin 4.1 g/dL (3.5-5.7); Albumin/Globulin Ratio 1.6 (1.1-2.2); Alkaline Phosphatase 54 Units/L (34-104); Aspartate Amino Transferase 22 Units/L (13-39); BUN/Creatinine Ratio 21 (6-26); Bilirubin,Total 0.7 mg/dL (0.3-1.0); Blood Urea Nitrogen 23 mg/dL (8-23); Calcium 9.4 mg/dL (8.6-10.3); Carbon Dioxide 21 mEq/L (23-29); Chloride 106 mEq/L (98-107); Globulin 2.5 g/dL (2.4-3.5); Glucose 156 mg/dL (70-105); Osmolality,Calculated 289 (280-300); Potassium 3.8 mEq/L (3.5-5.1); Sodium 136 mEq/L (136-145); Total Protein 6.6 g/dL (6.4-8.9); Troponin I < 0.03 ng/mL (< 0.04); eGFR For African Americans > 60 (> 60); eGFR For Non-African Americans > 60 (> 60)
[2020-09-17 12:55] LABS: INR 1.1; Prothrombin Time 13.2 Seconds (9.4-12.1)
[2020-09-17] MEDS ORDERED: Naloxone 0.4 MG/ML INJ IVP PRN (15:20)
[2020-09-17] MEDS ORDERED: Ondansetron 4 MG/2 ML VIAL IVP PRN (15:20)
[2020-09-17] MEDS ORDERED: MOM Conc 10 ML UD.LIQ PO PRN (15:20)
[2020-09-17] MEDS ORDERED: Acetaminophen 325 MG TABLET PO PRN (15:20)
[2020-09-17] MEDS ORDERED: Mag Hydrox/Al Hydrox/Simeth 30 ML UDC PO PRN (15:20)
[2020-09-17] MEDS: *HR* Heparin 5,000 UNIT/ML VIAL SQ SCH (16:55)
[2020-09-17] MEDS ORDERED: hydrOXYzine pamoate 25 MG CAPSULE PO PRN (21:14)
[2020-09-17] MEDS: Nitroglycerin 0.4 MG TAB.SUBL SL PRN ×2 (21:49→21:55)
[2020-09-17] MEDS ORDERED: Isovue-370 500 ML BOTTLE IVP ONE (22:05)
[2020-09-17] MEDS ORDERED: Morphine Sulfate 2 MG/ML SYRINGE IVP ONE (22:05)
[2020-09-18] MEDS: *HR* Heparin 5,000 UNIT/ML VIAL SQ SCH (06:00)
[2020-09-18] MEDS ORDERED: hydrOXYzine pamoate 25 MG CAPSULE PO PRN (06:53)
[2020-09-18 08:03] LABS: Hematocrit 35.5 % (37.5-50.1); Hemoglobin 11.5 g/dL (12.9-16.9); Mean Corpuscular HGB Conc 32.4 g/dL (31.6-35.5); Mean Corpuscular Hemoglobin 29.3 pg (28.0-33.3); Mean Corpuscular Volume 90.3 fL (83.0-100.0); Mean Platelet Volume 10.4 fL (9.4-12.4); Platelet Count 187 K/mcL (140-400); Red Blood Count 3.93 M/mcL (4.19-5.50); Red Cell Distribution Width 12.2 % (11.5-14.5); White Blood Count 6.1 K/mcL (4.3-11.1)
[2020-09-18] MEDS ORDERED: Ascorbic Acid 500 MG TABLET PO SCH (09:00)
[2020-09-18] MEDS ORDERED: Aspirin 81 MG TAB.CHEW PO SCH (09:00)
[2020-09-18] MEDS ORDERED: Cholecalciferol (D-3) 1,000 UNIT (25MCG) TABLET PO SCH (09:00)
[2020-09-18 10:41] VITALS: BP 131/75
[2020-09-18 10:43] LABS: BUN/Creatinine Ratio 17 (6-26); Blood Urea Nitrogen 21 mg/dL (8-23); Calcium 9.7 mg/dL (8.6-10.3); Carbon Dioxide 22 mEq/L (23-29); Chloride 107 mEq/L (98-107); Chol/HDL Ratio 2.5 (0-4.9); Cholesterol 112 mg/dL (< 200); Glucose 152 mg/dL (70-105); HDL Cholesterol 44 mg/dL (40-59); LDL Cholesterol,Calculated 52 mg/dL (< 100); Magnesium 2.1 mg/dL (1.6-2.6); Osmolality,Calculated 292 (280-300); Phosphorous 3.5 mg/dL (2.7-4.5); Potassium 4.1 mEq/L (3.5-5.1); Sodium 138 mEq/L (136-145); Triglycerides 81 mg/dL (< 150); eGFR For African Americans > 60 (> 60); eGFR For Non-African Americans 56 (> 60)
== END 2020-09-18 15:41 | disposition home or self-care (01) ==
LOC: EMEROOARM 11:52 → 3BNU 11:52
PROVIDERS: ADMIT Internal Medicine; ATTEND Internal Medicine

== ENCOUNTER 2021-03-24 23:20 | Observation (INO) ==
[2021-03-25] MEDS ORDERED: *HR* Adenosine 6 MG/2 ML VIAL IVP ONE (00:02)
[2021-03-25] MEDS ORDERED: 0.9 % Sodium Chloride 1,000 ML ONE (00:05)
[2021-03-25] MEDS ORDERED: DilTIAZem 50 MG/50 ML IV.SOLN IVC SCH (00:15)
[2021-03-25] MEDS ORDERED: Ondansetron 4 MG/2 ML VIAL IVP PRN (01:56)
[2021-03-25] MEDS ORDERED: Acetaminophen 325 MG TABLET PO PRN (01:56)
[2021-03-25] MEDS ORDERED: Naloxone 0.4 MG/ML INJ IVP PRN (01:56)
[2021-03-25] MEDS ORDERED: Perflutren Lipid Microsphere 1.3 ML in 0.9 % Sodium Chloride 8.7 ML IVP PRN (01:58)
[2021-03-25] MEDS ORDERED: Oxymetazoline Nasal SPRAY BOTTLE NS PRN (02:44)
[2021-03-25 03:15] LABS: Basophils % 0.4 %; Eosinophils # 0.1 K/mcL (0.0-0.6); Eosinophils % 1.1 %; Hematocrit 38.2 % (37.5-50.1); Hemoglobin 13.1 g/dL (12.9-16.9); Immature Granulocytes % 0.4 % (0-4); Lymphocytes # 1.4 K/mcL (0.6-4.6); Lymphocytes % 18.1 %; Mean Corpuscular HGB Conc 34.3 g/dL (31.6-35.5); Mean Corpuscular Hemoglobin 30.5 pg (28.0-33.3); Mean Corpuscular Volume 88.8 fL (83.0-100.0); Mean Platelet Volume 10.2 fL (9.4-12.4); Monocytes # 0.7 K/mcL (0.0-1.3); Monocytes % 9.1 %; Neutrophils # 5.6 K/mcL (1.6-8.9); Platelet Count 175 K/mcL (140-400); Red Cell Distribution Width 12.8 % (11.5-14.5); Segmented Neutrophils % 70.9 %; White Blood Count 7.9 K/mcL (4.3-11.1)
[2021-03-25 03:41] LABS: Alanine Aminotransferase 24 Units/L (7-52); Albumin 4.1 g/dL (3.5-5.7); Albumin/Globulin Ratio 1.5 (1.1-2.2); Alkaline Phosphatase 52 Units/L (34-104); Aspartate Amino Transferase 22 Units/L (13-39); BUN/Creatinine Ratio 17 (6-26); Bilirubin,Total 0.7 mg/dL (0.3-1.0); Blood Urea Nitrogen 17 mg/dL (8-23); Calcium 9.2 mg/dL (8.6-10.3); Carbon Dioxide 19 mEq/L (23-29); Chloride 112 mEq/L (98-107); Chol/HDL Ratio 2.8 (0-4.9); Cholesterol 122 mg/dL (< 200); Globulin 2.7 g/dL (2.4-3.5); Glucose 123 mg/dL (70-105); HDL Cholesterol 44 mg/dL (40-59); LDL Cholesterol,Calculated 50 mg/dL (< 100); Osmolality,Calculated 291 (280-300); Potassium 4.1 mEq/L (3.5-5.1); Sodium 139 mEq/L (136-145); Total Protein 6.8 g/dL (6.4-8.9); Triglycerides 139 mg/dL (< 150); eGFR For African Americans > 60 (> 60); eGFR For Non-African Americans > 60 (> 60)
[2021-03-25 03:47] LABS: Thyroid Stimulating Hormone 4.358 mcIU/mL (0.340-5.600)
[2021-03-25] MEDS: Cholecalciferol (D-3) 1,000 UNIT (25MCG) TABLET PO SCH (08:23)
[2021-03-25] MEDS ORDERED: *HR* Enoxaparin 30 MG/0.3 ML SYRINGE SQ SCH (09:00)
[2021-03-25] MEDS: Aspirin 81 MG TAB.CHEW PO SCH (19:38)
[2021-03-26 01:57] LABS: BUN/Creatinine Ratio 19 (6-26); Blood Urea Nitrogen 22 mg/dL (8-23); Calcium 9.5 mg/dL (8.6-10.3); Carbon Dioxide 21 mEq/L (23-29); Chloride 108 mEq/L (98-107); Glucose 113 mg/dL (70-105); Osmolality,Calculated 288 (280-300); Potassium 4.2 mEq/L (3.5-5.1); Sodium 137 mEq/L (136-145); eGFR For African Americans > 60 (> 60); eGFR For Non-African Americans > 60 (> 60)
[2021-03-26] MEDS: *HR* Enoxaparin 40 MG/0.4 ML SYRINGE SQ SCH (05:56)
[2021-03-26] MEDS: Cholecalciferol (D-3) 1,000 UNIT (25MCG) TABLET PO SCH (10:02)
[2021-03-26] MEDS: Aspirin 81 MG TAB.CHEW PO SCH (20:12)
[2021-03-27] MEDS: *HR* Enoxaparin 40 MG/0.4 ML SYRINGE SQ SCH (06:08)
[2021-03-27 07:01] LABS: BUN/Creatinine Ratio 21 (6-26); Blood Urea Nitrogen 25 mg/dL (8-23); Calcium 9.6 mg/dL (8.6-10.3); Carbon Dioxide 22 mEq/L (23-29); Chloride 105 mEq/L (98-107); Glucose 159 mg/dL (70-105); Osmolality,Calculated 288 (280-300); Potassium 3.7 mEq/L (3.5-5.1); Sodium 135 mEq/L (136-145); eGFR For African Americans > 60 (> 60); eGFR For Non-African Americans > 60 (> 60)
[2021-03-27 08:04] VITALS: BP 132/84
[2021-03-27] MEDS: Cholecalciferol (D-3) 1,000 UNIT (25MCG) TABLET PO SCH (08:42)
== END 2021-03-27 10:57 | disposition home or self-care (01) ==
LOC: EMEROOARM 23:20 → 2ANU 23:20 → SUATTDRO 03-25 00:48 → 2ANU 03-25 02:14
PROVIDERS: ADMIT Student in an Organized Health Care Education/Training Program; ATTEND General Practice